=== PATIENT | female | born 1935 | race Caucasian/White ===

== ENCOUNTER 2016-09-01 15:16 | Outpatient (CLI) | payer MEDICARE, OTHER | END 2016-09-01 23:59 | disposition critical access hospital (66) | LOC: EMS 15:16 | PROVIDERS: ATTEND Surgery | DX: R50.9 Fever, unspecified (principal) | CPT/HCPCS: A0425; A0429 ==

== ENCOUNTER 2016-09-01 15:39 | Inpatient (IN) | payer MEDICARE, OTHER ==
[2016-09-01] MEDS ORDERED: methylPREDNISolone SUCCINATE 125 MG/2 ML VIAL IVP STA (15:52)
[2016-09-01] MEDS ORDERED: ALBUTEROL NEB 2.5 MG/3 ML INH STA (15:52)
--- NOTE | 2016-09-01 15:56 | ED Physician Documentation ---
History of Present Illness - Stated complaint Stated Complaint: FLU SYMPTOMS - Chief complaint Chief Complaint: Resp - Additonal information Additional information: hx from pt 81 female with COPD ill with subj fever chills cough soa for several days cannot use her MDI 2/2 dyspnea no pain no leg edema went to clinic and was hypoxic sent to ER for admit Review of Systems Constitutional: reports: Fever, Chills Cardiac: denies: Chest pain / pressure Respiratory: reports: Dyspnea, Cough GI: denies: Abdominal Pain, Nausea, Vomiting Musculoskeletal: denies: Extremity swelling Endocrine: denies: Easy bruising / bleeding Immunocompromised: denies: Immunocompromised PD PAST MEDICAL HISTORY - Past Medical History Cardiovascular: Atrial flutter Respiratory: COPD Neuro: None Endocrine/Autoimmune: None GI: GERD : Nocturia, Kidney stones HEENT: Dental implants Psych: Depression Musculoskeletal: None Derm: None - Past Surgical History Past Surgical History: Yes /[employer]BER: Hysterectomy Derm: Skin grafts, Skin cancer surgery - Present Medications Home Medications: Ambulatory Orders Medication Instructions Recorded Confirmed Albuterol Sulfate 0.63 mg IH DAILY 05/28/13 09/01/16 Amlodipine Bes/Olmesartan Med 1 each PO DAILY 05/28/13 09/01/16 [Dominga 10-40 mg Tablet] Budesonide/Formoterol Fumarate 10.2 gm IH DAILY 05/28/13 09/01/16 [Symbicort 160-4.5 Mcg Inhaler] Omeprazole [Prilosec] 20 mg PO DAILY 05/28/13 09/01/16 Estrogens, Conjugated [Premarin] 0.5 applic VG DAILY 09/01/16 09/01/16 Fluticasone [Flonase] 1 inhaler PO DAILY 09/01/16 09/01/16 - Allergies Allergies/Adverse Reactions: Allergies Allergy/AdvReac Type Severity Reaction Status Date / Time amoxicillin [Amoxicillin] AdvReac Unknown Rash Verified 09/01/16 15:49 ciprofloxacin [From Cipro] AdvReac Unknown Nausea Verified 09/01/16 15:49 ciprofloxacin HCl * AdvReac Unknown Nausea Verified 09/01/16 15:49 [From Cipro] codeine AdvReac Unknown Hallucinati Verified 09/01/16 15:49 ons nabumetone [From Relafen] AdvReac Unknown Nausea Verified 09/01/16 15:49 nitrofurantoin AdvReac Unknown Nausea Verified 09/01/16 15:49 [From Macrobid] nitrofurantoin AdvReac Unknown Nausea Verified 09/01/16 15:49 macrocrystalline * [From Macrobid] Sulfa (Sulfonamide AdvReac Unknown Rash Verified 09/01/16 15:49 Antibiotics) oysters AdvReac Unknown Nausea Uncoded 09/01/16 15:49 - Social History Does the pt smoke?: No Smoking Status: Former smoker Does the pt drink ETOH?: No Does the pt have substance abuse?: No - Immunizations Immunizations are current?: Yes - POLST Patient has POLST: No PD ED PE NORMAL - Vitals Vital signs reviewed: Yes - General General: Alert and oriented X 3 - HEENT HEENT: PERRL - Neck Neck: Supple, no meningeal sign - Cardiac Cardiac: RRR - Respiratory Respiratory: No: No respiratory distress (SOLOMON, exp wheeze jc with cough, dec air movement) - Abdomen Abdomen: Soft, Non tender - Extremities Extremities: No edema, No calf tenderness / cord - Neuro Neuro: Alert and oriented X 3 Results - Vitals Vitals: Vital Signs - 24 hr 09/01/16 09/01/16 09/01/16 15:30 17:38 17:51 Temperature 37.6 C H 37.4 C Heart Rate 95 114 H Respiratory 26 H 18 Rate Blood Pressure 124/61 O2 Saturation 74 L 97 09/01/16 17:58 Temperature Heart Rate 100 Respiratory 18 Rate Blood Pressure 122/58 L O2 Saturation 99 Oxygen O2 Source Nasal cannula Oxygen Flow Rate 2 - Labs Labs: Laboratory Tests 09/01/16 09/01/16 09/01/16 16:14 16:14 16:22 WBC 12.6 H RBC 4.48 Hgb 12.1 Hct 36.7 L MCV 81.8 MCH 26.9 L MCHC 32.9 RDW 17.4 H Plt Count 287 MPV 7.2 L Neut # 10.6 H Lymph # 0.7 L [place] # 1.2 H Eos # 0.0 Baso # 0.0 Absolute Nucleated RBC 0.01 Nucleated RBCs 0.1 Sodium 133 L Potassium 4.0 Chloride 100 L Carbon Dioxide 25 Anion Gap 8.0 BUN 22 H Creatinine 0.8 Estimated GFR (MDRD) 69 L Glucose 119 H Lactic Acid 0.7 Calcium 10.4 H - Rads (name of study) CXR Radiology: See rad report (areas of inc opacity LLL and RML could be infiltrates - per my read lingular infiltrate with loss of L heart border new from prior CXR) PD MEDICAL DECISION MAKING - ED course ED course: better after nebs and steroids, now mid 90s on 2 L and improved breath sounds and resp effort CXR shows lingular infiltrate gave rocephin and zmax will admit Departure - Departure Disposition: 66 [facility] DC/Xfer Clinical Impression: Hypoxia Pneumonia Qualifiers: Pneumonia type: due to unspecified organism Laterality: left Lung location: unspecified part of lung Qualified Code(s): J18.9 - Pneumonia, unspecified organism COPD (chronic obstructive pulmonary disease) Qualifiers: COPD type: unspecified COPD Qualified Code(s): J44.9 - Chronic obstructive pulmonary disease, unspecified Condition: Fair
[2016-09-01] MEDS ORDERED: methylPREDNISolone SUCCINATE 125 MG/2 ML VIAL IVP ONE (16:15)
[2016-09-01] MEDS ORDERED: ALBUTEROL NEB 2.5 MG/3 ML INH ONE (16:21)
[2016-09-01 16:34] LABS: BASOPHILS % (AUTO) 0.2 %; HCT - HEMATOCRIT 36.7 % (37.0-47.0); HGB - HEMOGLOBIN 12.1 g/dL (12.0-16.0); LYMPHOCYTES # (AUTO) 0.7 10^3/uL (1.5-3.5); LYMPHOCYTES % (AUTO) 5.5 %; MEAN CORPUSCULAR HEMOGLOBIN 26.9 pg (27.0-31.0); MEAN CORPUSCULAR HGB CONC 32.9 g/dL (32.0-36.0); MEAN CORPUSCULAR VOLUME 81.8 fL (81.0-99.0); MEAN PLATELET VOLUME 7.2 fL (7.9-10.8); MONOCYTES # (AUTO) 1.2 10^3/uL (0.0-1.0); MONOCYTES % (AUTO) 9.7 %; NEUTROPHILS # (AUTO) 10.6 10^3/uL (1.5-6.6); NEUTROPHILS % (AUTO) 84.6 %; NUCLEATED RED BLOOD CELLS AUTO 0.1 /100WBC; RED BLOOD COUNT 4.48 10^6/uL (4.20-5.40); RED CELL DISTRIBUTION WIDTH 17.4 % (12.0-15.0); UNCORRECTED WHITE BLOOD COUNT 12.6 x10^3/uL; WHITE BLOOD COUNT 12.6 x10^3/uL (4.8-10.8)
[2016-09-01 16:42] LABS: CALCIUM 10.4 mg/dL (8.5-10.3); CREATININE 0.8 mg/dL (0.4-1.0)
[2016-09-01] MEDS ORDERED: AZITHROMYCIN INJ 500 MG in SODIUM CHLORIDE 0.9% 250 ML IV STA (17:36)
[2016-09-01] MEDS ORDERED: cefTRIAXone 1 GM in SODIUM CHLORIDE 0.9% MINIBAG 100 ML IV STA (17:36)
[2016-09-01] MEDS ORDERED: cefTRIAXone 1 GM VIAL ONE (17:38)
[2016-09-01] MEDS ORDERED: oxyCODONE 5 MG TABLET PO PRN ×2 (17:41)
[2016-09-01] MEDS ORDERED: SODIUM CHLORIDE FLUSH 0.9% 10 ML SYRINGE IVP PRN (17:41)
[2016-09-01] MEDS ORDERED: PROCHLORPERAZINE 10 MG/2 ML VIAL IVP PRN (17:41)
[2016-09-01] MEDS ORDERED: ACETAMINOPHEN 325 MG TABLET PO PRN (17:41)
[2016-09-01] MEDS ORDERED: ONDANSETRON 4 MG/2 ML VIAL IVP PRN (17:41)
--- NOTE | 2016-09-01 17:58 | XRAY Preliminary Report ---
Exam: XR Chest 2 View PA/LAT IMPRESSION: 1. Hyperinflated lungs with extensive interstitial disease of the lung. Overall, chronic appearing in terstitial process has progressed since the prior imaging. 2. No new definite focal consolidation, effusions or pneumothorax. Areas of increased parenchymal opa cities in the left lower and lateral right midlung could represent infection or inflammatory changes superimposed upon chronic lung abnormalities. [facility] SITE ID: [id number]
--- NOTE | 2016-09-01 18:35 | XRAY Report ---
EXAM: CHEST RADIOGRAPHY EXAM DATE: 09/01/2016 05:20 PM. CLINICAL HISTORY: Cough, hypoxia. COMPARISON: 12/16/2013 CT of the chest and 10/14/2008 chest radiograph. TECHNIQUE: 2 views. FINDINGS: Lungs/Pleura: Lungs are hyperinflated. Extensive coarse interstitial parenchymal abnormalities are pr esent throughout both lungs. Overall, the degree of interstitial lung disease has progressed since th e prior chest radiograph and CT of the chest. No new consolidation, effusions or pneumothorax. Bronch ial wall thickening is noted. Mediastinum: Atheromatous plaques are noted in the thoracic arch. No cardiac enlargement. Other: None. IMPRESSION: 1. Hyperinflated lungs with extensive interstitial disease of the lung. Overall, chronic appearing in terstitial process has progressed since the prior imaging. 2. No new definite focal consolidation, effusions or pneumothorax. Areas of increased parenchymal den sities in the left lower and lateral right midlung could represent infection or inflammatory changes superimposed upon chronic lung abnormalities. [facility] Referring Provider Line: [phone] SITE ID: [id number]
[2016-09-01] MEDS ORDERED: methylPREDNISolone SUCCINATE 40 MG/ML VIAL IVP SCH (22:00)
[2016-09-02] MEDS: SODIUM CHLORIDE 0.9% 1,000 ML IV SCH ×3 (01:08→09:11)
[2016-09-02] MEDS: SODIUM CHLORIDE FLUSH 0.9% 10 ML SYRINGE IVP SCH ×4 (01:09→22:09)
[2016-09-02] MEDS: FORMOTEROL FUMARATE NEB 20 MCG/2 ML INH SCH ×3 (02:09→21:13)
[2016-09-02] MEDS: IPRATROPIUM/ALBUTEROL 3 ML NEB INH SCH ×4 (02:09→16:45)
[2016-09-02] MEDS: BUDESONIDE 0.5 MG/2 ML NEB INH SCH ×3 (02:09→21:13)
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
[2016-09-02 06:15] LABS: BASOPHILS % (AUTO) 0.1 %; HCT - HEMATOCRIT 35.8 % (37.0-47.0); HGB - HEMOGLOBIN 11.8 g/dL (12.0-16.0); LYMPHOCYTES # (AUTO) 0.4 10^3/uL (1.5-3.5); LYMPHOCYTES % (AUTO) 4.1 %; MEAN CORPUSCULAR HEMOGLOBIN 27.5 pg (27.0-31.0); MEAN CORPUSCULAR HGB CONC 32.9 g/dL (32.0-36.0); MEAN CORPUSCULAR VOLUME 83.6 fL (81.0-99.0); MEAN PLATELET VOLUME 7.3 fL (7.9-10.8); MONOCYTES # (AUTO) 0.3 10^3/uL (0.0-1.0); MONOCYTES % (AUTO) 2.8 %; NEUTROPHILS # (AUTO) 9.7 10^3/uL (1.5-6.6); RED BLOOD COUNT 4.28 10^6/uL (4.20-5.40); RED CELL DISTRIBUTION WIDTH 17.4 % (12.0-15.0); UNCORRECTED WHITE BLOOD COUNT 10.4 x10^3/uL; WHITE BLOOD COUNT 10.4 x10^3/uL (4.8-10.8)
[2016-09-02 06:22] LABS: CALCIUM 10.1 mg/dL (8.5-10.3); CREATININE 0.7 mg/dL (0.4-1.0); POTASSIUM 4.3 mmol/L (3.5-5.0)
[2016-09-02] MEDS: PANTOPRAZOLE 40 MG TABLET PO SCH (06:22)
[2016-09-02] MEDS ORDERED: amLODIPine 5 MG TABLET PO SCH (09:00)
[2016-09-02] MEDS ORDERED: LOSARTAN 50 MG TABLET PO SCH (09:00)
[2016-09-02] MEDS ORDERED: ENOXAPARIN 40 MG/0.4 ML SYRINGE SUBQ SCH ×2 (09:00)
[2016-09-02] MEDS: cefTRIAXone 2 GM in SODIUM CHLORIDE 0.9% MINIBAG 100 ML IV SCH (09:10)
[2016-09-02] MEDS: POLYETHYLENE GLYCOL 3350 17 GM PACKET PO SCH ×2 (09:11→09:18)
[2016-09-02] MEDS: FLUTICASONE NASAL SPRAY NAS SCH (09:11)
[2016-09-02] MEDS: ENOXAPARIN 30 MG/0.3 ML SYRINGE SUBQ SCH (09:11)
[2016-09-02] MEDS: SACCHAROMYCES BOULARDII 250 MG CAPSULE PO SCH ×2 (09:11→16:59)
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
[2016-09-02] MEDS: predniSONE 10 MG TABLET PO SCH (10:33)
[2016-09-02] MEDS: IPRATROPIUM/ALBUTEROL 3 ML NEB INH PRN (21:13)
[2016-09-03] MEDS: SODIUM CHLORIDE FLUSH 0.9% 10 ML SYRINGE IVP SCH ×2 (05:46→08:54)
[2016-09-03 05:54] LABS: BASOPHILS % (AUTO) 0.1 %; HCT - HEMATOCRIT 35.1 % (37.0-47.0); HGB - HEMOGLOBIN 11.4 g/dL (12.0-16.0); LYMPHOCYTES # (AUTO) 0.8 10^3/uL (1.5-3.5); LYMPHOCYTES % (AUTO) 7.3 %; MEAN CORPUSCULAR HEMOGLOBIN 27.1 pg (27.0-31.0); MEAN CORPUSCULAR HGB CONC 32.6 g/dL (32.0-36.0); MEAN CORPUSCULAR VOLUME 83.3 fL (81.0-99.0); MEAN PLATELET VOLUME 7.2 fL (7.9-10.8); MONOCYTES # (AUTO) 0.7 10^3/uL (0.0-1.0); MONOCYTES % (AUTO) 6.6 %; NEUTROPHILS # (AUTO) 9.3 10^3/uL (1.5-6.6); RED BLOOD COUNT 4.22 10^6/uL (4.20-5.40); RED CELL DISTRIBUTION WIDTH 17.4 % (12.0-15.0); UNCORRECTED WHITE BLOOD COUNT 10.8 x10^3/uL; WHITE BLOOD COUNT 10.8 x10^3/uL (4.8-10.8)
[2016-09-03 06:07] LABS: CALCIUM 10.9 mg/dL (8.5-10.3); CREATININE 0.7 mg/dL (0.4-1.0); POTASSIUM 4.3 mmol/L (3.5-5.0)
[2016-09-03] MEDS: PANTOPRAZOLE 40 MG TABLET PO SCH (06:41)
--- NOTE | 2016-09-03 07:43 | Discharge Plan ---
Discharge Plan Disposition: Home, Self Care Condition: Stable Prescriptions: Azithromycin 250 mg PO DAILY #3 tablet predniSONE [Deltasone] 30 mg PO DAILYWM #15 tablet Diet: Regular Activity Restrictions: No Restrictions Shower Restrictions: No Driving Restrictions: No Weight Bearing: Full Weight Additional Instructions or Follow Up instructions: COPD exacerbation and possible early pneumonia You came to the hospital w/ profound fatigue, low oxygen and wheezing and chills, cough and shortness of breath at home and could not effectively use your inhaler . No fever here In the ER you needed several nebulizer treatments and started antibiotics and were much improved and back on your home flow of 2L oxygen. The chest Xray shows, chronic COPD change and choronic fibrotic changes of the lungs ("interstitial lung disease, which appears progressed since the prior chest Xray here from 2013. and some Left lower lobe and Righ mid lobe changes that could be acute inflammation Take an additional 3 days of azithromycin 09/04-09/06, and 5 more days of prednisone 30 mg / day 09/04-09/08 Your blood pressure has been relatively low here even when holding your home medication and giving you IVfluid 101-106/50-61 and was 94/58 the first day Do not resume your blood pressure pill (Dominga ; combination of amlodipine/ olmesartan; 2 different Blood pressure agents) until reevaluated by Dr. Francis. You might not need the blood pressure pill any more (you also noted weight loss) continue your home oxygen 2liters continue your inhalers REcommend Dr. Francis recheck CXray ~ 4 weeks No Smoking: If you smoke, Please STOP! Call for help. Follow-up with: NATHANIEL FRANCIS MD [Physician No Access] - 1-2 Days (reevaluate oxygenation consider recheck CXR in 4-6 wks (there was no obvious infiltrate , much ILD, change, increased parenchymal densities LLL and lateral RMid lung ? infection vs inflammatory change superimposed on chronic changes)
[2016-09-03] MEDS: cefTRIAXone 2 GM in SODIUM CHLORIDE 0.9% MINIBAG 100 ML IV SCH (08:47)
[2016-09-03] MEDS: SACCHAROMYCES BOULARDII 250 MG CAPSULE PO SCH (08:52)
[2016-09-03] MEDS: predniSONE 10 MG TABLET PO SCH (08:52)
[2016-09-03] MEDS: POLYETHYLENE GLYCOL 3350 17 GM PACKET PO SCH (08:52)
[2016-09-03] MEDS: ENOXAPARIN 30 MG/0.3 ML SYRINGE SUBQ SCH (08:53)
[2016-09-03] MEDS: FLUTICASONE NASAL SPRAY NAS SCH (08:55)
[2016-09-03] MEDS ORDERED: AZITHROMYCIN 250 MG TABLET PO ONE (09:00)
[2016-09-03] MEDS: FORMOTEROL FUMARATE NEB 20 MCG/2 ML INH SCH (09:31)
[2016-09-03] MEDS: IPRATROPIUM/ALBUTEROL 3 ML NEB INH PRN (09:31)
[2016-09-03] MEDS: BUDESONIDE 0.5 MG/2 ML NEB INH SCH (09:31)
[2016-09-03 09:54] VITALS: BP 96/53
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
== END 2016-09-03 10:59 | disposition home or self-care (01) | DRG 190 ==
LOC: EDUNIT# → ED 15:39 → MS 17:42
PROVIDERS: ADMIT Nurse Practitioner; ATTEND Nurse Practitioner
DX: J44.1 Chronic obstructive pulmonary disease with (acute) exacerbation (principal); J18.9 Pneumonia, unspecified organism; J96.21 Acute and chronic respiratory failure with hypoxia; J44.0 Chronic obstructive pulmonary disease with (acute) lower respiratory infection; K21.9 Gastro-esophageal reflux disease without esophagitis; Z88.0 Allergy status to penicillin; Z88.2 Allergy status to sulfonamides; Z88.5 Allergy status to narcotic agent; Z87.891 Personal history of nicotine dependence; Z90.710 Acquired absence of both cervix and uterus; R53.1 Weakness; E86.0 Dehydration; Z99.81 Dependence on supplemental oxygen; N95.2 Postmenopausal atrophic vaginitis
CPT/HCPCS: 36415; 71020; 80048; 83605; 85025; 87040; 94640; 96374; 96375; 99284

== ENCOUNTER 2016-12-24 23:08 | Outpatient (CLI) | payer MEDICARE, OTHER | END 2016-12-24 23:09 | disposition EMS.NT | LOC: EMS 23:08 | PROVIDERS: ATTEND Surgery | DX: Z03.89 Encounter for observation for other suspected diseases and conditions ruled out (principal); W18.39XA Other fall on same level, initial encounter; Y92.009 Unspecified place in unspecified non-institutional (private) residence as the place of occurrence of the external cause ==

== ENCOUNTER 2017-01-03 05:03 | Outpatient (CLI) | payer MEDICARE, OTHER | END 2017-01-03 05:04 | disposition critical access hospital (66) | LOC: EMS 05:03 | PROVIDERS: ATTEND Surgery | DX: M25.561 Pain in right knee (principal); M25.521 Pain in right elbow; M25.551 Pain in right hip; S09.90XA Unspecified injury of head, initial encounter; W19.XXXA Unspecified fall, initial encounter; Y92.002 Bathroom of unspecified non-institutional (private) residence as the place of occurrence of the external cause | CPT/HCPCS: A0425; A0429 ==

== ENCOUNTER 2017-01-03 05:32 | Emergency (ER) | payer MEDICARE, OTHER ==
--- NOTE | 2017-01-03 05:58 | ED Physician Documentation ---
PD HPI Fall - Stated complaint Stated Complaint: GLF/R SIDED PN - Chief complaint Chief Complaint: Trauma Ext - History obtained from History obtained from: Patient, EMS - History of Present Illness Mechanism of injury: Tripped Fall distance: Standing position Where injury occurred: Home Timing - onset: How many hours ago (45) Injury(ies) location: Head, Right Upper Extremity, Right Lower Extremity Quality of pain: Pain, Aching Associated symptoms: LOC Worsens with: Movement Similar symptoms before: No diagnosis Recently seen: Not recently seen - Additional information Additional information: Patient is an 82 year old female with a history of severe copd on home O2 who was brought in by ems after falling. Patient got up to go to the bathroom when she believes she tripped. Patient fell and had questionable loc. Patient was able to call the life line. ems came and patient was awake and able to ambulate at the scene. Patient was hypoxic until placed on her home 02. Patient lives alone as her recently . Review of Systems Constitutional: denies: Fever, Chills Eyes: denies: Decreased vision, Photophobia Ears: denies: Ear pain, Drainage/discharge Nose: denies: Epistaxis Throat: denies: Dental pain / toothache Cardiac: denies: Chest pain / pressure, Calf pain Respiratory: reports: Wheezing GI: denies: Nausea, Vomiting Skin: reports: Abrasion (s) Musculoskeletal: reports: Extremity pain, Joint pain, Extremity swelling, Joint swelling, Pain with weight bearing. denies: Neck pain Neurologic: reports: Head injury, LOC. 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: Hysterectomy Derm: Skin grafts, Skin cancer surgery - Present Medications Home Medications: Ambulatory Orders Medication Instructions Recorded Confirmed Budesonide/Formoterol Fumarate 2 puffs INH BID 05/28/13 09/05/16 [Symbicort 160-4.5 Mcg Inhaler] Omeprazole [Prilosec] 20 mg PO QDAC 05/28/13 09/05/16 Estrogens, Conjugated [Premarin] 0.5 applic VG MOWEFR 09/01/16 09/05/16 Fluticasone [Flonase] 1 inhaler PO DAILY 09/01/16 09/05/16 Albuterol Sulfate [Proair Hfa 2 puffs INH Q4H PRN 09/02/16 09/05/16 Inhaler] Acetaminophen [Tylenol] 650 mg PO Q4HR PRN #0 tablet 09/03/16 09/05/16 Azithromycin 250 mg PO DAILY #3 tablet 09/03/16 09/05/16 predniSONE [Deltasone] 30 mg PO DAILYWM #15 tablet 09/03/16 09/05/16 - Allergies Allergies/Adverse Reactions: Allergies Allergy/AdvReac Type Severity Reaction Status Date / Time amoxicillin [Amoxicillin] AdvReac Unknown Rash Verified 09/01/16 15:49 ciprofloxacin [From Cipro] AdvReac Unknown Nausea Verified 09/01/16 15:49 ciprofloxacin HCl * AdvReac Unknown Nausea Verified 09/01/16 15:49 [From Cipro] codeine AdvReac Unknown Hallucinati Verified 09/01/16 15:49 ons nabumetone [From Relafen] AdvReac Unknown Nausea Verified 09/01/16 15:49 nitrofurantoin AdvReac Unknown Nausea Verified 09/01/16 15:49 [From Macrobid] nitrofurantoin AdvReac Unknown Nausea Verified 09/01/16 15:49 macrocrystalline * [From Macrobid] Sulfa (Sulfonamide AdvReac Unknown Rash Verified 09/01/16 15:49 Antibiotics) oysters AdvReac Unknown Nausea Uncoded 09/01/16 15:49 - Social History Does the pt smoke?: No Smoking Status: Never smoker Does the pt drink ETOH?: No Does the pt have substance abuse?: No - Immunizations Immunizations are current?: Yes - POLST Patient has POLST: No PD ED PE NORMAL - Vitals Vital signs reviewed: Yes - General General: Alert and oriented X 3, No acute distress - HEENT HEENT: PERRL, Moist mucous membranes - Neck Neck: No bony TTP - Cardiac Cardiac: RRR, No murmur - Abdomen Abdomen: Soft, Non distended - Neuro Neuro: Alert and oriented X 3, No motor deficit, No sensory deficit, Normal speech - Psych Psych: Normal mood PD ED PE EXPANDED - HEENT HEENT: Head injury (hematoma of right side of the scalp), PERRL, Ears normal. No: Right nares epsitaxis, Left nares epistaxis - Derm Derm: Abrasion (s), Bruising - Extremities Extremities: Right elbow (ecchymosis of right elbow), Right hip (tenderness of right hip), Right knee (tenderness, swelling and ecchymosis of right knee), Pedal Pulses Present, Motor intact, Sensory intact, Vascular intact, Tendon intact Results - Vitals Vitals: Vital Signs - 24 hr 01/03/17 01/03/17 05:31 06:48 Temperature 36.5 C Heart Rate 59 L 60 Respiratory 20 16 Rate Blood Pressure 198/75 H 187/70 H O2 Saturation 100 99 Oxygen O2 Source Room air Oxygen Flow Rate 2 - Labs Labs: Laboratory Tests 01/03/17 06:35 Urine Color YELLOW Urine Clarity CLEAR Urine pH 7.0 Ur Specific [place] 1.010 Urine Protein NEGATIVE Urine Glucose (UA) NEGATIVE Urine Ketones NEGATIVE Urine Occult Blood NEGATIVE Urine Nitrite NEGATIVE Urine Bilirubin NEGATIVE Urine Urobilinogen 0.2 (NORMAL) Ur Leukocyte Esterase NEGATIVE Ur Microscopic Review NOT INDICATED Urine Culture Comments NOT INDICATED - Rads (name of study) elbow Radiology: Final report received (osteopenia, no acute fracture or dislocation) hip Radiology: Final report received (no acute fracture or dislocation) knee x-ray Radiology: Final report received (osteopenia, no acute fracture or dislocation) ct head Radiology: Final report received (no acute intracranial pathology, scalp hematoma) PD MEDICAL DECISION MAKING - ED course Complexity details: reviewed old records, reviewed results, re-evaluated patient , considered differential, d/w patient, d/w family ED course: Patient was seen and examined at bedside. Patient was placed on her supplemental 02. Patient was sent for imaging. when patient returned urine was collected and sent. Patient's imaging was reviewed. there is no acute fracture or dislocations and no acute intracranial pathology. Patient required no further work up at this time and was stable for discharge home with her son. Departure - Departure Disposition: 01 Home, Self Care Clinical Impression: Hematoma of scalp, Injury of lower leg Condition: Good Instructions: ED Hematoma Follow-Up: Wellington Francis MD [Primary Care Provider] - Within 3 Days Comments: Your diagnostics today were within normal limits. there were no acute fractures or intracranial bleeding. there was no urinary tract infection. You will likely be in more pain over the next few days. You can take tylenol and an occasional ibuprofen as needed for pain. You should follow up with your doctor if your symptoms persist. You may return to the emergency department at any time for new, worsening or uncontrollable symptoms.
[2017-01-03 06:45] LABS: BILIRUBIN,URINE NEGATIVE (NEGATIVE)
[2017-01-03 06:49] LABS: UA CHARGE (STRIP ONLY) YES; UR CULTURE IF IND NOT INDICATED
--- NOTE | 2017-01-03 06:52 | XRAY Preliminary Report ---
Exam: XR HIP W/PELVIS 2-3V RT IMPRESSION: 1. Osteopenia. No acute fracture or dislocation seen. [facility] SITE ID: [id number]
--- NOTE | 2017-01-03 06:53 | XRAY Preliminary Report ---
Exam: XR ELBOW 3 VIEW RT IMPRESSION: 1. Osteopenia. No acute fracture or dislocation seen. [facility] SITE ID: [id number]
--- NOTE | 2017-01-03 06:54 | XRAY Report ---
EXAM: RIGHT HIP AND PELVIS RADIOGRAPHY EXAM DATE: 01/03/2017 06:36 AM. HISTORY: Fall, ecchymosis to head, elbow hip and knee. COMPARISONS: None. TECHNIQUE: 1 view of the pelvis and 1 view of the hip. FINDINGS: Bones: Osteopenia. No acute fracture seen. Joints: No dislocation. Joint spaces are relatively well preserved for age. Soft Tissues: Vascular calcifications. IMPRESSION: 1. Osteopenia. No acute fracture or dislocation seen. [facility] Referring Provider Line: [phone] SITE ID: [id number]
--- NOTE | 2017-01-03 06:56 | XRAY Report ---
EXAM: RIGHT ELBOW RADIOGRAPHY EXAM DATE: 01/03/2017 06:35 AM. CLINICAL HISTORY: Fall, ecchymosis to head, elbow hip and knee. COMPARISON: None. TECHNIQUE: 3 views. FINDINGS: Bones: Osteopenia. No acute fracture seen. Joints: No dislocation. Joint spaces are relatively well preserved for age. No definite joint effusio n. Soft Tissues: Mild soft tissue swelling. IMPRESSION: 1. Osteopenia. No acute fracture or dislocation seen. [facility] Referring Provider Line: [phone] SITE ID: [id number]
--- NOTE | 2017-01-03 06:56 | XRAY Preliminary Report ---
Exam: XR KNEE 3 VIEW RT IMPRESSION: 1. Osteopenia. No acute fracture or dislocation seen. [facility] SITE ID: [id number]
--- NOTE | 2017-01-03 06:59 | XRAY Report ---
EXAM: RIGHT KNEE RADIOGRAPHY EXAM DATE: 01/03/2017 06:36 AM. CLINICAL HISTORY: Fall, ecchymosis to head, elbow hip and knee. COMPARISON: None. TECHNIQUE: 3 views. FINDINGS: Bones: Osteopenia. No acute fracture seen. Joints: No dislocation. Joint spaces are relatively well preserved for age. No definite joint effusio n. Soft Tissues: Mild soft tissue swelling. IMPRESSION: 1. Osteopenia. No acute fracture or dislocation seen. [facility] Referring Provider Line: [phone] SITE ID: [id number]
--- NOTE | 2017-01-03 07:04 | CT Preliminary Report ---
Exam: CT HEAD W/O IMPRESSION: 1. No acute intracranial process. 2. Small right frontal scalp hematoma without calvarial fracture. [facility] SITE ID: [id number]
[2017-01-03] MEDS ORDERED: ACETAMINOPHEN 325 MG TABLET PO STA (07:07)
--- NOTE | 2017-01-03 07:07 | CT Report ---
EXAM: CT HEAD EXAM DATE: 01/03/2017 06:36 AM. CLINICAL HISTORY: Head pain, fall. COMPARISON: None. TECHNIQUE: Multiaxial CT images were obtained from the foramen magnum to the vertex. IV contrast: Non e. Reformats: Coronal. In accordance with CT protocol optimization, one or more of the following dose reduction techniques w ere utilized for this exam: automated exposure control, adjustment of mA and/or KV based on patient s ize, or use of iterative reconstructive technique. FINDINGS: Parenchyma: No intraparenchymal hemorrhage. No evidence of mass, midline shift, or CT findings of acu te infarction. 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 Sood-white differentiation is distinct elsewhere in the brain. Extraaxial Spaces: No acute subdural or epidural collections identified. Ventricles: The ventricles and cortical sulci are moderately enlarged, consistent with age-related ti ssue loss. Sinuses and orbits: Imaged paranasal sinuses, orbits, and mastoids show no significant abnormality. Bones: A small right frontal scalp hematoma is present without an underlying calvarial fracture. Other: Moderate diffuse chronic microangiopathic white matter changes are evident. Mild intracranial atherosclerosis is noted. IMPRESSION: 1. No acute intracranial process. 2. Small right frontal scalp hematoma without calvarial fracture. [facility] Referring Provider Line: [phone] SITE ID: [id number]
[2017-01-03] MEDS ORDERED: ACETAMINOPHEN 325 MG TABLET PO ONE (07:20)
[2017-01-03 07:29] VITALS: BP 178/81
== END 2017-01-03 07:25 | disposition home or self-care (01) ==
LOC: EDUNIT# → ED 05:32
DX: S00.03XA Contusion of scalp, initial encounter (principal); S89.91XA Unspecified injury of right lower leg, initial encounter; S80.01XA Contusion of right knee, initial encounter; S50.01XA Contusion of right elbow, initial encounter; W01.0XXA Fall on same level from slipping, tripping and stumbling without subsequent striking against object, initial encounter; J44.9 Chronic obstructive pulmonary disease, unspecified; Z99.81 Dependence on supplemental oxygen
CPT/HCPCS: 70450; 73080; 73502; 73562; 81003; 99284; A9270; 81001; 87086

== ENCOUNTER 2017-04-18 09:02 | Outpatient (CLI) | payer MEDICARE, OTHER ==
[2017-04-18 13:01] LABS: BASOPHILS # (AUTO) 0.1 10^3/uL (0.0-0.1); BASOPHILS % (AUTO) 1.3 %; EOSINOPHILS # (AUTO) 0.2 10^3/uL (0.0-0.7); EOSINOPHILS % (AUTO) 2.5 %; HGB - HEMOGLOBIN 12.7 g/dL (12.0-16.0); LYMPHOCYTES % (AUTO) 26.2 %; MEAN CORPUSCULAR HEMOGLOBIN 27.8 pg (27.0-31.0); MEAN CORPUSCULAR HGB CONC 34.1 g/dL (32.0-36.0); MEAN CORPUSCULAR VOLUME 81.6 fL (81.0-99.0); MEAN PLATELET VOLUME 7.8 fL (7.9-10.8); MONOCYTES # (AUTO) 0.5 10^3/uL (0.0-1.0); MONOCYTES % (AUTO) 6.5 %; NEUTROPHILS # (AUTO) 4.9 10^3/uL (1.5-6.6); NEUTROPHILS % (AUTO) 63.5 %; PLT - PLATELET COUNT 258 10^3/uL (130-450); RED BLOOD COUNT 4.55 10^6/uL (4.20-5.40); WHITE BLOOD COUNT 7.8 x10^3/uL (4.8-10.8)
[2017-04-18 13:28] LABS: ALBUMIN 3.6 g/dL (3.2-5.5); ALKALINE PHOSPHATASE 58 IU/L (42-121); ALT ALANINE AMINOTRANSFERASE 15 IU/L (10-60); AST ASPARTATE AMINOTRANSFERASE 26 IU/L (10-42); BILIRUBIN,TOTAL 0.4 mg/dL (0.2-1.0); BUN - BLOOD UREA NITROGEN 15 mg/dL (6-20); CARBON DIOXIDE - CO2 30 mmol/L (21-32); CHLORIDE 100 mmol/L (101-111); CHOL/HDL RATIO 3.7 (<4.4); CHOLESTEROL 191 mg/dL; CREATININE 0.6 mg/dL (0.4-1.0); GFR - MDRD 95 (>89); GLUCOSE 106 mg/dL (70-100); HDL CHOLESTEROL 52 mg/dL; LDL CHOLESTEROL,CALCULATED 122 mg/dL; LDL/HDL RATIO 2.3 (<4.4); SODIUM 138 mmol/L (135-145); TOTAL PROTEIN 7.1 g/dL (6.7-8.2); VLDL CHOLESTEROL 17 mg/dL
== END 2017-04-18 09:03 | disposition home or self-care (01) ==
LOC: LAB.WCP 09:02
PROVIDERS: ATTEND Family Medicine
DX: I10 Essential (primary) hypertension (principal); I25.10 Atherosclerotic heart disease of native coronary artery without angina pectoris; E03.9 Hypothyroidism, unspecified
CPT/HCPCS: 36415; 80053; 80061; 83721; 84443; 85025

== ENCOUNTER 2017-05-17 08:50 | Outpatient (CLI) | payer MEDICARE, OTHER ==
[2017-05-17 13:49] LABS: ALBUMIN 3.9 g/dL (3.2-5.5); ALBUMIN/GLOBULIN RATIO 1.2 (1.0-2.2); BILIRUBIN,TOTAL 0.2 mg/dL (0.2-1.0); CALCIUM 11.5 mg/dL (8.5-10.3); CREATININE 0.6 mg/dL (0.4-1.0); TOTAL PROTEIN 7.2 g/dL (6.7-8.2)
== END 2017-05-17 08:51 | disposition home or self-care (01) ==
LOC: LAB.WCP 08:50
PROVIDERS: ATTEND Family Medicine
DX: E83.52 Hypercalcemia (principal)
CPT/HCPCS: 36415; 80053

== ENCOUNTER 2017-07-11 08:00 | Outpatient (CLI) | payer MEDICARE, OTHER | END 2017-07-11 08:01 | LOC: LAB.R 08:00 | PROVIDERS: ATTEND Family Medicine | DX: R31.9 Hematuria, unspecified (principal) | CPT/HCPCS: 87077; 87086 ==

== ENCOUNTER 2017-07-12 07:58 | Outpatient (CLI) | payer MEDICARE, OTHER ==
--- NOTE | 2017-07-12 14:23 | CT Report ---
CT ABDOMEN AND PELVIS WITHOUT CONTRAST: 07/12/2017 CLINICAL INDICATION: History of kidney stones, hematuria. TECHNIQUE: Axial CT images of the abdomen and pelvis were obtained without oral or intravenous contrast. COMPARISON: 12/14/2008 FINDINGS: Limited evaluation of the lung bases demonstrates extensive emphysema. ABDOMEN: There is no evidence of nephrolithiasis or hydronephrosis. The kidneys appear unremarkable. The ureters are not dilated. Allowing for the lack of intravenous contrast enhancement, the liver, spleen, pancreas and adrenal glands are unremarkable. The gallbladder is not dilated. No bowel dilatation, free gas, or free fluid is present. No abdominal adenopathy is seen. PELVIS: The distal ureters and urinary bladder appear unremarkable. Postoperative changes of hysterectomy are present. Colonic diverticulosis is seen, without CT evidence of diverticulitis. No pelvic adenopathy or free fluid is present. Osseous structures demonstrate degenerative changes. IMPRESSION: NO EVIDENT ETIOLOGY FOR PATIENT'S HEMATURIA. NO NEPHROLITHIASIS. DIVERTICULOSIS WITHOUT CT EVIDENCE OF DIVERTICULITIS. CT DOSE REDUCTION STATEMENT In accordance with CT protocol optimization, one or more of the following dose reduction techniques were utilized for this exam: automated exposure control, adjustment of mA and/or KV based on patient size, or use of iterative reconstructive technique. TD: 07/12/2017 14:22 SARAH
== END 2017-07-12 07:59 | disposition home or self-care (01) ==
LOC: DI 07:58
PROVIDERS: ATTEND Family Medicine
DX: R31.9 Hematuria, unspecified (principal); K57.30 Diverticulosis of large intestine without perforation or abscess without bleeding
CPT/HCPCS: 74176

== ENCOUNTER 2017-07-20 11:24 | Outpatient (CLI) | payer MEDICARE, OTHER ==
[2017-07-20 19:32] LABS: BASOPHILS # (AUTO) 0.1 10^3/uL (0.0-0.1); BASOPHILS % (AUTO) 0.9 %; EOSINOPHILS # (AUTO) 0.2 10^3/uL (0.0-0.7); EOSINOPHILS % (AUTO) 2.5 %; HGB - HEMOGLOBIN 11.4 g/dL (12.0-16.0); LYMPHOCYTES # (AUTO) 1.9 10^3/uL (1.5-3.5); LYMPHOCYTES % (AUTO) 29.9 %; MEAN CORPUSCULAR HEMOGLOBIN 27.9 pg (27.0-31.0); MEAN CORPUSCULAR HGB CONC 32.4 g/dL (32.0-36.0); MEAN CORPUSCULAR VOLUME 86.2 fL (81.0-99.0); MEAN PLATELET VOLUME 7.5 fL (7.9-10.8); MONOCYTES # (AUTO) 0.5 10^3/uL (0.0-1.0); MONOCYTES % (AUTO) 7.9 %; NEUTROPHILS # (AUTO) 3.8 10^3/uL (1.5-6.6); NEUTROPHILS % (AUTO) 58.8 %; PLT - PLATELET COUNT 297 10^3/uL (130-450); RED BLOOD COUNT 4.09 10^6/uL (4.20-5.40); RED CELL DISTRIBUTION WIDTH 16.8 % (12.0-15.0); WHITE BLOOD COUNT 6.5 x10^3/uL (4.8-10.8)
[2017-07-20 19:38] LABS: ALBUMIN 3.8 g/dL (3.2-5.5); ALBUMIN/GLOBULIN RATIO 1.2 (1.0-2.2); BILIRUBIN,TOTAL 0.6 mg/dL (0.2-1.0); CALCIUM 10.7 mg/dL (8.5-10.3); CREATININE 0.6 mg/dL (0.4-1.0); TOTAL PROTEIN 6.9 g/dL (6.7-8.2)
[2017-07-20 20:05] LABS: BILIRUBIN,URINE NEGATIVE (NEGATIVE); GLUCOSE, URINE (UA) NEGATIVE (NEGATIVE); KETONES,URINE (UA) NEGATIVE (NEGATIVE); LEUKOCYTE ESTERASE, URINE NEGATIVE (NEGATIVE); NITRITE,URINE NEGATIVE (NEGATIVE); OCCULT BLOOD,URINE TRACE-INTA (NEGATIVE); PROTEIN,URINE NEGATIVE (NEGATIVE); UROBILINOGEN,URINE 0.2 (NORMAL) E.U./dL (NORMAL)
[2017-07-20 20:26] LABS: BACTERIA,URINE Rare /HPF (None Seen); CLARITY,URINE CLEAR (CLEAR); SQUAMOUS EPITHELIAL CELL,UR MANY Squamous (<= Few)
[2017-07-20 20:27] LABS: CRYSTALS,URINE 11-25 Ca Oxalate /LPF
== END 2017-07-20 11:25 | disposition home or self-care (01) ==
LOC: LAB.WCP 11:24
PROVIDERS: ATTEND Family Medicine
DX: R31.9 Hematuria, unspecified (principal); E83.52 Hypercalcemia; E03.9 Hypothyroidism, unspecified; I25.10 Atherosclerotic heart disease of native coronary artery without angina pectoris; I10 Essential (primary) hypertension
CPT/HCPCS: 36415; 80053; 81001; 85025; 87086

== ENCOUNTER 2017-08-03 08:47 | Outpatient (CLI) | payer MEDICARE, OTHER | END 2017-08-03 08:48 | disposition EMS.NT | LOC: EMS 08:47 | PROVIDERS: ATTEND Surgery | DX: R11.2 Nausea with vomiting, unspecified (principal) ==

== ENCOUNTER 2017-11-25 02:17 | Outpatient (CLI) | payer MEDICARE, OTHER | END 2017-11-25 02:18 | disposition critical access hospital (66) | LOC: EMS 02:17 | PROVIDERS: ATTEND Surgery | DX: R11.2 Nausea with vomiting, unspecified (principal); R68.83 Chills (without fever) | CPT/HCPCS: A0425; A0429 ==

== ENCOUNTER 2017-11-25 02:49 | Emergency (ER) | payer MEDICARE, OTHER ==
[2017-11-25] MEDS ORDERED: ONDANSETRON 4 MG/2 ML VIAL IVP STA (02:56)
[2017-11-25] MEDS ORDERED: SODIUM CHLORIDE 0.9% 1,000 ML IV ONE (02:56)
--- NOTE | 2017-11-25 03:10 | ED Physician Documentation ---
History of Present Illness - Stated complaint Stated Complaint: N/V - Chief complaint Chief Complaint: Abd Pain - History obtained from History obtained from: Patient - Additonal information Additional information: 82-year-old female presents the emergency department with multiple episodes of vomiting which started several hours ago. The symptoms are associated with upper abdominal pain. The patient is denying chest pain, shortness of breath, fever, cough, lower abdominal pain or dysuria or diarrhea. No specific triggering factors. No relieving factors. The patient does report feeling very chilled and fatigued. Symptoms are described as moderate. No other associated symptoms. Review of Systems Constitutional: reports: Chills, Fatigue. denies: Fever Eyes: denies: Loss of vision Ears: denies: Ear pain Nose: denies: Rhinorrhea / runny nose Throat: denies: Sore throat Cardiac: denies: Chest pain / pressure Respiratory: denies: Dyspnea GI: reports: Abdominal Pain, Nausea, Vomiting. denies: Diarrhea, Hematemesis, Bloody / black stool : denies: Dysuria Skin: denies: Rash Neurologic: denies: Generalized weakness Psychiatric: denies: Suicidal PD PAST MEDICAL HISTORY - Past Medical History Cardiovascular: Atrial flutter Respiratory: COPD Endocrine/Autoimmune: None GI: GERD : Nocturia, Kidney stones HEENT: Dental implants Psych: Depression Musculoskeletal: None Derm: None - Past Surgical History Past Surgical History: Yes /[employer]: Hysterectomy Derm: Skin grafts, Skin cancer surgery - Present Medications Home Medications: Ambulatory Orders Medication Instructions Recorded Confirmed Budesonide/Formoterol Fumarate 2 puffs INH BID 05/28/13 09/05/16 [Symbicort 160-4.5 Mcg Inhaler] Omeprazole [Prilosec] 20 mg PO QDAC 05/28/13 09/05/16 Fluticasone [Flonase] 1 inhaler PO DAILY 09/01/16 09/05/16 Albuterol Sulfate [Proair Hfa 2 puffs INH Q4H PRN 09/02/16 09/05/16 Inhaler] Acetaminophen [Tylenol] 650 mg PO Q4HR PRN #0 tablet 09/03/16 09/05/16 Aspirin Chewable [St Bill 81 mg PO DAILY 11/25/17 11/25/17 Aspirin] Losartan [Cozaar] 100 mg PO DAILY 11/25/17 11/25/17 Multivitamin/Iron/Folic Acid 1 each PO DAILY 11/25/17 11/25/17 [Centrum Women Tablet] Ondansetron Odt [Zofran] 4 mg TL Q6H PRN #30 tablet 11/25/17 - Allergies Allergies/Adverse Reactions: Allergies Allergy/AdvReac Type Severity Reaction Status Date / Time amoxicillin [From Augmentin] Allergy Nausea Verified 11/25/17 03:01 clavulanic acid Allergy Nausea Verified 11/25/17 03:01 [From Augmentin] ciprofloxacin [From Cipro] AdvReac Unknown Nausea Verified 11/25/17 02:59 ciprofloxacin HCl * AdvReac Unknown Nausea Verified 11/25/17 02:59 [From Cipro] codeine AdvReac Unknown Hallucinati Verified 11/25/17 02:59 ons nabumetone [From Relafen] AdvReac Unknown Nausea Verified 11/25/17 02:59 nitrofurantoin AdvReac Unknown Nausea Verified 11/25/17 02:59 [From Macrobid] nitrofurantoin AdvReac Unknown Nausea Verified 11/25/17 02:59 macrocrystalline * [From Macrobid] Sulfa (Sulfonamide AdvReac Unknown Rash Verified 11/25/17 02:59 Antibiotics) oysters AdvReac Unknown Nausea Uncoded 11/25/17 02:59 - Social History Does the pt smoke?: No Smoking Status: Never smoker Does the pt drink ETOH?: No Does the pt have substance abuse?: No - Immunizations Immunizations are current?: Yes - POLST Patient has POLST: No PD ED PE NORMAL - General General: Alert and oriented X 3. No: No acute distress (The patient appears uncomfortable) - HEENT HEENT: Atraumatic, PERRL, EOMI, Ears normal - Cardiac Cardiac: RRR, Strong equal pulses - Respiratory Respiratory: No respiratory distress, Clear bilaterally - Abdomen Abdomen: Soft, Non distended. No: Non tender (Upper abdominal tenderness, no rebound or peritoneal signs) - Derm Derm: Normal color - Extremities Extremities: No deformity, No edema - Neuro Neuro: Alert and oriented X 3, Normal speech - Psych Psych: Normal affect Results - Vitals Vitals: Vital Signs - 24 hr 11/25/17 11/25/17 02:50 03:17 Temperature 36.9 C Heart Rate 89 77 Respiratory 20 20 Rate Blood Pressure 205/89 H 188/82 H O2 Saturation 100 Oxygen O2 Source Room air - Labs Labs: Laboratory Tests 11/25/17 11/25/17 11/25/17 03:10 03:10 03:10 WBC 12.5 H RBC 4.16 L Hgb 11.7 L Hct 35.8 L MCV 86.0 MCH 28.1 MCHC 32.7 RDW 15.9 H Plt Count 265 MPV 6.8 L Neut # (Auto) 10.5 H Lymph # (Auto) 0.9 L [place] # (Auto) 0.8 Eos # (Auto) 0.2 Baso # (Auto) 0.1 Absolute Nucleated RBC 0.00 Nucleated RBC % 0.0 Sodium 137 Potassium 3.8 Chloride 98 L Carbon Dioxide 32 Anion Gap 7.0 BUN 21 H Creatinine 0.8 Estimated GFR (MDRD) 68 L Glucose 124 H Calcium 10.4 H Total Bilirubin 0.6 AST 29 ALT 23 Alkaline Phosphatase 64 Troponin I < 0.04 Total Protein 6.8 Albumin 3.7 Globulin 3.1 Albumin/Globulin Ratio 1.2 Lipase 36 Urine Color Urine Clarity Urine pH Ur Specific [place] Urine Protein Urine Glucose (UA) Urine Ketones Urine Occult Blood Urine Nitrite Urine Bilirubin Urine Urobilinogen Ur Leukocyte Esterase Ur Microscopic Review Urine Culture Comments 11/25/17 03:40 WBC RBC Hgb Hct MCV MCH MCHC RDW Plt Count MPV Neut # (Auto) Lymph # (Auto) [place] # (Auto) Eos # (Auto) Baso # (Auto) Absolute Nucleated RBC Nucleated RBC % Sodium Potassium Chloride Carbon Dioxide Anion Gap BUN Creatinine Estimated GFR (MDRD) Glucose Calcium Total Bilirubin AST ALT Alkaline Phosphatase Troponin I Total Protein Albumin Globulin Albumin/Globulin Ratio Lipase Urine Color YELLOW Urine Clarity CLEAR Urine pH 8.0 H Ur Specific [place] 1.015 Urine Protein NEGATIVE Urine Glucose (UA) NEGATIVE Urine Ketones TRACE Urine Occult Blood NEGATIVE Urine Nitrite NEGATIVE Urine Bilirubin NEGATIVE Urine Urobilinogen 0.2 (NORMAL) Ur Leukocyte Esterase NEGATIVE Ur Microscopic Review NOT INDICATED Urine Culture Comments NOT INDICATED - Rads (name of study) CT abd/pelvis Radiology: Final report received (1. Extensive colonic diverticulosis. No definite diverticulitis seen.2. Moderate stool in the right hemicolon.3. No bowel obstruction identified. 4. Fatty liver. 5. Appendix appears normal.) CXR Radiology: Final report received (1. Emphysema with mild cardiomegaly and pulmonary vascular congestion. ) PD MEDICAL DECISION MAKING - ED course ED course: The patient's workup does not reveal an acute abnormality that would necessitate admission to the hospital or acute surgical consultation. On reevaluation the patient resting comfortably and her symptoms are under control. Currently, the patient appears appropriate for discharge home and ongoing outpatient management. I discussed with her the findings and plan and the patient understands and agrees. I discussed with her warning signs and recommended returning to the emergency department immediately for worsening or any concerns. - Sepsis Event Vital Signs: Vital Signs - 24 hr 11/25/17 11/25/17 02:50 03:17 Temperature 36.9 C Heart Rate 89 77 Respiratory 20 20 Rate Blood Pressure 205/89 H 188/82 H O2 Saturation 100 Oxygen O2 Source Room air Departure - Departure Disposition: 01 Home, Self Care Clinical Impression: Vomiting Qualifiers: Vomiting type: unspecified Vomiting Intractability: non-intractable Nausea presence: with nausea Qualified Code(s): R11.2 - Nausea with vomiting, unspecified Abdominal pain Qualifiers: Abdominal location: unspecified location Qualified Code(s): R10.9 - Unspecified abdominal pain Diverticulosis Qualifiers: Diverticulosis site: unspecified location Diverticulosis bleeding: diverticulosis without bleeding Qualified Code(s): K57.90 - Diverticulosis of intestine, part unspecified, without perforation or abscess without bleeding Condition: Good Instructions: Abdominal Pain, ED Nausea Vomiting Ch Prescriptions: Ondansetron Odt [Zofran] 4 mg TL Q6H PRN #30 tablet PRN Reason: Nausea / Vomiting Comments: Please Follow-up with primary care for recheck in reevaluation of your symptoms. Please return to the emergency department immediately for worsening symptoms or any concerns
[2017-11-25 03:16] LABS: BASOPHILS # (AUTO) 0.1 10^3/uL (0.0-0.1); BASOPHILS % (AUTO) 0.4 %; EOSINOPHILS # (AUTO) 0.2 10^3/uL (0.0-0.7); EOSINOPHILS % (AUTO) 1.7 %; HGB - HEMOGLOBIN 11.7 g/dL (12.0-16.0); LYMPHOCYTES # (AUTO) 0.9 10^3/uL (1.5-3.5); LYMPHOCYTES % (AUTO) 7.4 %; MEAN CORPUSCULAR HEMOGLOBIN 28.1 pg (27.0-31.0); MEAN CORPUSCULAR HGB CONC 32.7 g/dL (32.0-36.0); MEAN PLATELET VOLUME 6.8 fL (7.9-10.8); MONOCYTES # (AUTO) 0.8 10^3/uL (0.0-1.0); MONOCYTES % (AUTO) 6.2 %; NEUTROPHILS # (AUTO) 10.5 10^3/uL (1.5-6.6); NEUTROPHILS % (AUTO) 84.3 %; PLT - PLATELET COUNT 265 10^3/uL (130-450); RED BLOOD COUNT 4.16 10^6/uL (4.20-5.40); RED CELL DISTRIBUTION WIDTH 15.9 % (12.0-15.0); WHITE BLOOD COUNT 12.5 x10^3/uL (4.8-10.8)
[2017-11-25 03:30] LABS: ALBUMIN 3.7 g/dL (3.2-5.5); ALBUMIN/GLOBULIN RATIO 1.2 (1.0-2.2); BILIRUBIN,TOTAL 0.6 mg/dL (0.2-1.0); CALCIUM 10.4 mg/dL (8.5-10.3); CREATININE 0.8 mg/dL (0.4-1.0); TOTAL PROTEIN 6.8 g/dL (6.7-8.2)
[2017-11-25] MEDS ORDERED: IOPAMIDOL-300 100 ML VIAL ONE (03:37)
[2017-11-25 03:53] LABS: BILIRUBIN,URINE NEGATIVE (NEGATIVE); GLUCOSE, URINE (UA) NEGATIVE (NEGATIVE); KETONES,URINE (UA) TRACE mg/dL (NEGATIVE); LEUKOCYTE ESTERASE, URINE NEGATIVE (NEGATIVE); NITRITE,URINE NEGATIVE (NEGATIVE); OCCULT BLOOD,URINE NEGATIVE (NEGATIVE); PROTEIN,URINE NEGATIVE (NEGATIVE); UROBILINOGEN,URINE 0.2 (NORMAL) E.U./dL (NORMAL)
[2017-11-25 03:54] LABS: CLARITY,URINE CLEAR (CLEAR)
[2017-11-25] MEDS ORDERED: IOPAMIDOL-300 100 ML VIAL IVP ONE (04:36)
--- NOTE | 2017-11-25 04:41 | XRAY Report ---
Reason: cough Procedure Date: 11/25/2017 Accession Number: [id number] / [id number] Procedure: XR - Chest 2 View X-Ray CPT Code: 53452 FULL RESULT: EXAM: CHEST RADIOGRAPHY EXAM DATE: 11/25/2017 03:54 AM. CLINICAL HISTORY: Cough. Shortness of breath. Weakness and vomiting. COMPARISON: 09/01/2016. TECHNIQUE: 2 views. FINDINGS: Lungs/Pleura: Emphysema. Pulmonary vascular congestion. No alveolar consolidation or pleural effusion seen. No pneumothorax. Mediastinum: Mild cardiomegaly. Aortic atherosclerosis. Other: Osteopenia. IMPRESSION: 1. Emphysema with mild cardiomegaly and pulmonary vascular congestion. RADIA
--- NOTE | 2017-11-25 04:47 | CT Report ---
Reason: vomiting, pain Procedure Date: 11/25/2017 Accession Number: [id number] / [id number] Procedure: CT - Abdomen/Pelvis W/ CPT Code: FULL RESULT: EXAM: CT ABDOMEN AND PELVIS EXAM DATE: 11/25/2017 04:12 AM. CLINICAL HISTORY: Vomiting, pain. COMPARISONS: 07/12/2017. TECHNIQUE: Routine helical CT imaging was performed through the abdomen and pelvis. IV contrast: 100 ML ISOVUE 300. Enteric contrast: No. Reconstructions: Coronal and sagittal. In accordance with CT protocol optimization, one or more of the following dose reduction techniques were utilized for this exam: automated exposure control, adjustment of mA and/or KV based on patient size, or use of iterative reconstructive technique. FINDINGS: Lung Bases: Emphysema. Liver: Fatty infiltration. Gallbladder/Bile Ducts: Unremarkable. Spleen: Normal. Pancreas: Normal. Adrenal Glands: Normal. Kidneys: Small right renal cyst. No masses or hydronephrosis. Peritoneal Cavity/Bowel: Colonic diverticulosis. No obvious diverticulitis. Moderate stool in the right hemicolon. No bowel obstruction seen. Umbilical hernia containing fat. Small infraumbilical ventral hernia containing fat. No free air or free fluid. No lymphadenopathy. Appendix appears normal. Pelvic Organs: Uterus is not seen. Visualized pelvic organs are unremarkable. Vasculature: Moderate atherosclerosis. No aortic aneurysm. Bones: Osteopenia. Degenerative changes in the spine with grade 1 degenerative spondylolisthesis at L5-S1. Mild scoliosis. Other: None. IMPRESSION: 1. Extensive colonic diverticulosis. No definite diverticulitis seen. 2. Moderate stool in the right hemicolon. 3. No bowel obstruction identified. 4. Fatty liver. 5. Appendix appears normal. RADIA
[2017-11-25 05:24] VITALS: BP 155/69
== END 2017-11-25 06:25 | disposition home or self-care (01) ==
LOC: EDUNIT# → ED 02:49
DX: R11.2 Nausea with vomiting, unspecified (principal); K57.90 Diverticulosis of intestine, part unspecified, without perforation or abscess without bleeding; R94.31 Abnormal electrocardiogram [ECG] [EKG]; Z79.82 Long term (current) use of aspirin
CPT/HCPCS: 36415; 71046; 74177; 80053; 81003; 83690; 84484; 85025; 93005; 96361; 96374; 99283; 99284; Q9967; 81001; 87086

== ENCOUNTER 2018-10-02 10:35 | Emergency (ER) | payer MEDICARE, OTHER ==
--- NOTE | 2018-10-02 10:49 | ED Physician Documentation ---
PD HPI DYSPNEA - Stated complaint Stated Complaint: SOA - Chief complaint Chief Complaint: Resp - History obtained from History obtained from: Patient - History of Present Illness Timing - onset: How many weeks ago (1-2 weeks worsening, and particularly the past 4 days, but increased dyspnea for a month. States went to PMD office and assessed last week but no change in treatments.) Timing - onset during: Rest (the past 4 days), Light activity (initially) Timing - duration: Weeks Timing - details: Gradual onset, Still present Inciting event(s): URI (has feeling of cough and some congestion.) Improved by: O2, Inhaler/neb, Rest Worsened by: Exertion, Coughing. No: Laying flat Associated symptoms: Cough, Wheezing. No: Fever, Hemoptysis, Chest pain / discomfort, Palpitations, Bilateral edema Similar symptoms before: Diagnosis (COPD; no history of CHF.) Recently seen: Clinic (last week with earlier symptoms) Review of Systems Constitutional: denies: Fever, Chills, Myalgias Nose: reports: Congestion. denies: Rhinorrhea / runny nose Throat: denies: Sore throat Cardiac: denies: Chest pain / pressure, Palpitations Respiratory: reports: Dyspnea, Cough, Wheezing GI: denies: Abdominal Pain, Nausea, Vomiting Musculoskeletal: denies: Extremity swelling Neurologic: reports: Generalized weakness. 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 MGR: Hysterectomy Derm: Skin grafts, Skin cancer surgery - Present Medications Home Medications: Ambulatory Orders Medication Instructions Recorded Confirmed Budesonide/Formoterol Fumarate 2 puffs INH BID 05/28/13 09/05/16 [Symbicort 160-4.5 Mcg Inhaler] Omeprazole [Prilosec] 20 mg PO QDAC 05/28/13 09/05/16 Fluticasone [Flonase] 1 inhaler PO DAILY 09/01/16 09/05/16 Albuterol Sulfate [Proair Hfa 2 puffs INH Q4H PRN 09/02/16 09/05/16 Inhaler] Acetaminophen [Tylenol] 650 mg PO Q4HR PRN #0 tablet 09/03/16 09/05/16 Aspirin Chewable [St Bill 81 mg PO DAILY 11/25/17 11/25/17 Aspirin] Losartan [Cozaar] 100 mg PO DAILY 11/25/17 11/25/17 Multivitamin/Iron/Folic Acid 1 each PO DAILY 11/25/17 11/25/17 [Centrum Women Tablet] Ondansetron Odt [Zofran] 4 mg TL Q6H PRN #30 tablet 11/25/17 Benzonatate [Tessalon Perle] 100 mg PO TID PRN #20 capsule 10/02/18 Doxycycline Hyclate 100 mg PO BID #14 capsule 10/02/18 Ipratropium/Albuterol [Duoneb] 3 ml INH Q6H #30 neb 10/02/18 dexAMETHasone [Decadron] 4 mg PO DAILY #7 tablet 10/02/18 - Allergies Allergies/Adverse Reactions: Allergies Allergy/AdvReac Type Severity Reaction Status Date / Time amoxicillin [From Augmentin] Allergy Nausea Verified 10/02/18 10:50 clavulanic acid Allergy Nausea Verified 10/02/18 10:50 [From Augmentin] ciprofloxacin [From Cipro] AdvReac Unknown Nausea Verified 10/02/18 10:50 ciprofloxacin HCl * AdvReac Unknown Nausea Verified 10/02/18 10:50 [From Cipro] codeine AdvReac Unknown Hallucinati Verified 10/02/18 10:50 ons nabumetone [From Relafen] AdvReac Unknown Nausea Verified 10/02/18 10:50 nitrofurantoin AdvReac Unknown Nausea Verified 10/02/18 10:50 [From Macrobid] nitrofurantoin AdvReac Unknown Nausea Verified 10/02/18 10:50 macrocrystalline * [From Macrobid] Sulfa (Sulfonamide AdvReac Unknown Rash Verified 10/02/18 10:50 Antibiotics) oysters AdvReac Unknown Nausea Uncoded 10/02/18 10:50 - Social History Does the pt smoke?: No Smoking Status: Never smoker Does the pt drink ETOH?: No Does the pt have substance abuse?: No - Immunizations Immunizations are current?: Yes - POLST Patient has POLST: No PD ED PE NORMAL - Vitals Vital signs reviewed: Yes - General General: Alert and oriented X 3, No acute distress, Well developed/nourished - Neck Neck: Supple, no meningeal sign, No adenopathy, No JVD, No bruit - Cardiac Cardiac: RRR, No murmur - Respiratory Respiratory: No respiratory distress. No: Clear bilaterally (no coarse sounds, but does have diminished tidal volume and some exp wheezing diffusely. ) - Abdomen Abdomen: Soft, Non tender - Back Back: No CVA TTP - Derm Derm: Normal color - Extremities Extremities: No tenderness to palpate, Normal ROM s pain, No edema, No calf tenderness / cord - Neuro Neuro: Alert and oriented X 3, No motor deficit, Normal speech Results - Vitals Vitals: Vital Signs - 24 hr 10/02/18 10/02/18 10/02/18 10:45 11:30 12:49 Temperature 37.9 C H Heart Rate 95 86 95 Respiratory 26 H 20 16 Rate Blood Pressure 179/74 H O2 Saturation 100 10/02/18 13:24 Temperature Heart Rate 79 Respiratory 22 Rate Blood Pressure 154/79 H O2 Saturation 94 Oxygen O2 Source Nasal cannula Oxygen Flow Rate 4 - EKG (time done) 10:53 Rate: Rate (enter#) (94) Rhythm: NSR [place]: Normal Intervals: Normal CA QRS: Normal Ischemia: Normal ST segments. No: ST elevation c/w ischemia, ST depression - Labs Labs: Laboratory Tests 10/02/18 10/02/18 10/02/18 11:18 11:18 11:18 WBC 11.4 H RBC 3.99 L Hgb 11.2 L Hct 35.8 L MCV 89.7 MCH 28.1 MCHC 31.3 L RDW 15.4 H Plt Count 252 MPV 9.5 Neut # (Auto) 9.8 H Lymph # (Auto) 0.7 L [place] # (Auto) 0.8 Eos # (Auto) 0.0 Baso # (Auto) 0.0 Absolute Nucleated RBC 0.00 Nucleated RBC % 0.0 Sodium 138 Potassium 4.1 Chloride 97 L Carbon Dioxide 30 Anion Gap 11.0 BUN 15 Creatinine 0.7 Estimated GFR (MDRD) 80 L Glucose 119 H Calcium 11.0 H Magnesium 1.9 Total Bilirubin 1.0 AST 23 ALT 21 Alkaline Phosphatase 73 Troponin I < 0.04 B-Natriuretic Peptide Total Protein 7.6 Albumin 3.8 Globulin 3.8 Albumin/Globulin Ratio 1.0 Lipase 29 10/02/18 11:18 WBC RBC Hgb Hct MCV MCH MCHC RDW Plt Count MPV Neut # (Auto) Lymph # (Auto) [place] # (Auto) Eos # (Auto) Baso # (Auto) Absolute Nucleated RBC Nucleated RBC % Sodium Potassium Chloride Carbon Dioxide Anion Gap BUN Creatinine Estimated GFR (MDRD) Glucose Calcium Magnesium Total Bilirubin AST ALT Alkaline Phosphatase Troponin I B-Natriuretic Peptide 166 H Total Protein Albumin Globulin Albumin/Globulin Ratio Lipase - Rads (name of study) chest xray Radiology: Prelim report reviewed (some changes c/w vascular congesiton; no infiltrates), EMP read contemporaneously, See rad report PD MEDICAL DECISION MAKING - ED course Complexity details: considered differential (feeling improved after 2 nebs. She is on home oxygen usually and is saturating well on that. No pneumonia. I feel she is stable for outpatient treatment. ), d/w patient Departure - Departure Disposition: Home, Self Care Clinical Impression: COPD exacerbation Dyspnea Qualifiers: Dyspnea type: dyspnea on exertion Qualified Code(s): R06.09 - Other forms of dyspnea Upper respiratory infection Qualifiers: URI type: unspecified URI Qualified Code(s): J06.9 - Acute upper respiratory infection, unspecified Condition: Stable Record reviewed to determine appropriate education?: Yes Instructions: ED COPD Flare Follow-Up: Edna Rich MD [Primary Care Provider] - Prescriptions: Benzonatate [Tessalon Perle] 100 mg PO TID PRN #20 capsule PRN Reason: Cough dexAMETHasone [Decadron] 4 mg PO DAILY #7 tablet Doxycycline Hyclate 100 mg PO BID #14 capsule Ipratropium/Albuterol [Duoneb] 3 ml INH Q6H #30 neb Comments: Your chest x-rays does not show any signs of pneumonia. Still would be concerned he may have a bronchial infection given your symptoms and the flareup of the COPD. Doxycycline antibiotic twice daily for a week. Decadron steroid daily for a week as well. Continue your nebulizer treatments at home and do it 3 or 4 times a day. Add albuterol treatments as well if needed for shortness of breath. Continue your home oxygen. Follow-up with your primary care's office in the next several days to a week. Return if worsening. Discharge Date/Time: 10/02/18 13:53
[2018-10-02] MEDS ORDERED: IPRATROPIUM/ALBUTEROL 3 ML NEB INH STA (11:16)
[2018-10-02] MEDS ORDERED: DEXAMETHASONE 10 MG/ML VIAL IVP STA (11:17)
[2018-10-02] MEDS ORDERED: SODIUM CHLORIDE 0.9% 1,000 ML IV ONE (11:18)
[2018-10-02 11:35] LABS: BASOPHILS % (AUTO) 0.4 %; EOSINOPHILS % (AUTO) 0.1 %; HGB - HEMOGLOBIN 11.2 g/dL (12.0-16.0); LYMPHOCYTES # (AUTO) 0.7 10^3/uL (1.5-3.5); LYMPHOCYTES % (AUTO) 5.8 %; MEAN CORPUSCULAR HEMOGLOBIN 28.1 pg (27.0-31.0); MEAN CORPUSCULAR HGB CONC 31.3 g/dL (32.0-36.0); MEAN CORPUSCULAR VOLUME 89.7 fL (81.0-99.0); MEAN PLATELET VOLUME 9.5 fL (7.9-10.8); MONOCYTES # (AUTO) 0.8 10^3/uL (0.0-1.0); MONOCYTES % (AUTO) 6.9 %; NEUTROPHILS # (AUTO) 9.8 10^3/uL (1.5-6.6); NEUTROPHILS % (AUTO) 86.3 %; PLT - PLATELET COUNT 252 10^3/uL (130-450); RED BLOOD COUNT 3.99 10^6/uL (4.20-5.40); RED CELL DISTRIBUTION WIDTH 15.4 % (12.0-15.0); WHITE BLOOD COUNT 11.4 x10^3/uL (4.8-10.8)
[2018-10-02 11:44] LABS: ALBUMIN 3.8 g/dL (3.2-5.5); CREATININE 0.7 mg/dL (0.4-1.0); MAGNESIUM 1.9 mg/dL (1.7-2.8); TOTAL PROTEIN 7.6 g/dL (6.7-8.2)
--- NOTE | 2018-10-02 12:17 | XRAY Report ---
Reason: SOB/chest discomfort Procedure Date: 10/02/2018 Accession Number: [id number] / [id number] Procedure: XR - Chest 1 View X-Ray CPT Code: 17723 FULL RESULT: EXAM: CHEST RADIOGRAPHY EXAM DATE: 10/02/2018 11:33 AM. CLINICAL HISTORY: SOB/chest discomfort. COMPARISON: CHEST 2 VIEW 11/25/2017 3:54 AM. TECHNIQUE: Upright AP view. FINDINGS: Lungs/Pleura: As before, there appears to be mild bilateral pulmonary vascular congestion. There is no peripheral interstitial abnormality or focal consolidation. There is no pneumothorax or gross pleural fluid. Mediastinum: Within exam limitations, the cardiomediastinal contour is normal. Mild aortic arch calcification. Other: None. IMPRESSION: 1. Mild bilateral pulmonary vascular congestion as before which may reflect CHF. 2. No new airspace opacities. 3. Heart size is normal. RADIA
[2018-10-02] MEDS ORDERED: cefTRIAXone 1 GM VIAL IVP STA (12:23)
[2018-10-02] MEDS ORDERED: ALBUTEROL NEB 2.5 MG/3 ML INH STA (12:23)
[2018-10-02] MEDS ORDERED: DOXYCYCLINE 100 MG TABLET PO STA (12:23)
[2018-10-02 13:26] VITALS: BP 154/79
== END 2018-10-02 13:53 | disposition home or self-care (01) ==
LOC: ED 10:35
DX: J44.1 Chronic obstructive pulmonary disease with (acute) exacerbation (principal); J06.9 Acute upper respiratory infection, unspecified
CPT/HCPCS: 36415; 71045; 80053; 83690; 83735; 83880; 84484; 85025; 93005; 94640; 96361; 96374; 96375; 99284; A9270

== ENCOUNTER 2018-10-16 20:36 | Outpatient (CLI) | payer MEDICARE, OTHER | END 2018-10-16 20:37 | disposition critical access hospital (66) | LOC: EMS 20:36 | PROVIDERS: ATTEND Surgery | DX: R06.00 Dyspnea, unspecified (principal) | CPT/HCPCS: A0425; A0427 ==

== ENCOUNTER 2018-10-16 21:10 | Inpatient (IN) | payer MEDICARE, OTHER ==
[2018-10-16] MEDS ORDERED: methylPREDNISolone SUCCINATE 125 MG/2 ML VIAL IVP STA (21:17)
[2018-10-16] MEDS ORDERED: cefTRIAXone 1 GM in SODIUM CHLORIDE 0.9% MINIBAG 100 ML IV STA (21:18)
--- NOTE | 2018-10-16 21:21 | ED Physician Documentation ---
PD HPI DYSPNEA - Stated complaint Stated Complaint: SOA, FEVER,CHILLS - Chief complaint Chief Complaint: Resp - History obtained from History obtained from: Patient - History of Present Illness Timing - onset: Other (This is an 83-year-old woman who presents by ambulance for shortness of breath. She has a history of COPD for which she wears oxygen, 3 L by nasal cannula chronically. She also uses albuterol via neb 4 times a day, takes Spiriva. Over the last few days she has had increased shortness of breath with fevers and sweats. She has a chronic cough which she says really is not much worse than normal and it is nonproductive. Paramedics were summoned, they noted her sat to be around 60% on her usual 3 L, she did not tolerate efforts at CPAP or BiPAP, currently she is doing somewhat better after a DuoNeb in route and is about 97% on 6 L. 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 Derm: Skin grafts, Skin cancer surgery - Present Medications Home Medications: Ambulatory Orders Medication Instructions Recorded Confirmed Budesonide/Formoterol Fumarate 2 puffs INH BID 05/28/13 09/05/16 [Symbicort 160-4.5 Mcg Inhaler] Omeprazole [Prilosec] 20 mg PO QDAC 05/28/13 09/05/16 Albuterol Sulfate [Proair Hfa 2 puffs INH Q4H PRN 09/02/16 09/05/16 Inhaler] Aspirin Chewable [St Bill 81 mg PO DAILY 11/25/17 11/25/17 Aspirin] Losartan [Cozaar] 100 mg PO DAILY 11/25/17 11/25/17 Multivitamin/Iron/Folic Acid 1 each PO DAILY 11/25/17 11/25/17 [Centrum Women Tablet] Ipratropium/Albuterol [Duoneb] 3 ml INH Q6H #30 neb 10/02/18 - Allergies Allergies/Adverse Reactions: Allergies Allergy/AdvReac Type Severity Reaction Status Date / Time amoxicillin [From Augmentin] Allergy Nausea Verified 10/16/18 21:18 clavulanic acid Allergy Nausea Verified 10/16/18 21:18 [From Augmentin] ciprofloxacin [From Cipro] AdvReac Unknown Nausea Verified 10/16/18 21:18 ciprofloxacin HCl * AdvReac Unknown Nausea Verified 10/16/18 21:18 [From Cipro] codeine AdvReac Unknown Hallucinati Verified 10/16/18 21:18 ons nabumetone [From Relafen] AdvReac Unknown Nausea Verified 10/16/18 21:18 nitrofurantoin AdvReac Unknown Nausea Verified 10/16/18 21:18 [From Macrobid] nitrofurantoin AdvReac Unknown Nausea Verified 10/16/18 21:18 macrocrystalline * [From Macrobid] Sulfa (Sulfonamide AdvReac Unknown Rash Verified 10/16/18 21:18 Antibiotics) oysters AdvReac Unknown Nausea Uncoded 10/16/18 21:18 - Social History Does the pt smoke?: No Smoking Status: Never smoker Does the pt drink ETOH?: No Does the pt have substance abuse?: No - Family History Family history: reports: Non contributory - Immunizations Immunizations are current?: Yes - POLST Patient has POLST: No PD ED PE NORMAL - Vitals Vital signs reviewed: Yes - General General: Alert and oriented X 3, Other (Tachycardic, borderline febrile, tachypneic, decent saturations on 6 L) - HEENT HEENT: PERRL, EOMI, Pharynx benign - Neck Neck: Supple, no meningeal sign, No bony TTP - Cardiac Cardiac: Other (Tachycardic and regular without murmur) - Respiratory Respiratory: Other (Tachypneic, slightly decreased throughout) - Abdomen Abdomen: Soft, Non tender - Back Back: No CVA TTP, No spinal TTP - Derm Derm: Normal color, Warm and dry - Extremities Extremities: No edema, No calf tenderness / cord - Neuro Neuro: Alert and oriented X 3, Normal speech Results - Vitals Vitals: Vital Signs - 24 hr 10/16/18 21:11 Temperature 37.8 C H Heart Rate 119 H Respiratory 28 H Rate Blood Pressure 159/67 H O2 Saturation 97 Oxygen O2 Source Nasal cannula Oxygen Flow Rate 6 - EKG (time done) 5 Rate: Rate (enter#) (118) Rhythm: Sinus tachycardia [place]: Normal Intervals: Normal NV QRS: LVH Ischemia: Normal ST segments Computer interpretation: Agree with computer - Labs Labs: Laboratory Tests 10/16/18 10/16/18 10/16/18 21:25 21:30 21:30 WBC 18.6 H RBC 3.50 L Hgb 9.7 L Hct 30.9 L MCV 88.3 MCH 27.7 MCHC 31.4 L RDW 15.9 H Plt Count 270 MPV 9.2 Neut # (Auto) Not Reportable Lymph # (Auto) Not Reportable [place] # (Auto) Not Reportable Eos # (Auto) Not Reportable Baso # (Auto) Not Reportable Absolute Nucleated RBC Not Reportable Total Counted 100 Band Neuts % (Manual) 2 Abnorm Lymph % (Manual) 0 Nucleated RBC % Not Reportable Neutrophils # (Manual) 16.9 H Lymphocytes # (Manual) 0.6 L Monocytes # (Manual) 1.1 H Eosinophils # (Manual) 0.0 Basophils # (Manual) 0.0 Differential Comment MANUAL DIFFERENTIAL Platelet Estimate NORMAL (130-450,000) Platelet Morphology NORMAL APPEARANCE RBC Morph Micro Appear NORMAL APPEARANCE VBG pH VBG pCO2 VBG pO2 VBG HCO3 VBG Total CO2 VBG O2 Saturation VBG Base Excess Sodium 133 L Potassium 3.8 Chloride 98 L Carbon Dioxide 24 Anion Gap 11.0 BUN 15 Creatinine 0.7 Estimated GFR (MDRD) 80 L Glucose 138 H Lactic Acid Calcium 10.5 H Total Bilirubin 1.2 H AST 19 ALT 20 Alkaline Phosphatase 74 Troponin I Troponin I High Sens B-Natriuretic Peptide Total Protein 6.5 L Albumin 3.1 L Globulin 3.4 Albumin/Globulin Ratio 0.9 L Lipase 23 Influenza A (Rapid) Negative Influenza B (Rapid) Negative 10/16/18 10/16/18 10/16/18 21:30 21:30 21:30 WBC RBC Hgb Hct MCV MCH MCHC RDW Plt Count MPV Neut # (Auto) Lymph # (Auto) [place] # (Auto) Eos # (Auto) Baso # (Auto) Absolute Nucleated RBC Total Counted Band Neuts % (Manual) Abnorm Lymph % (Manual) Nucleated RBC % Neutrophils # (Manual) Lymphocytes # (Manual) Monocytes # (Manual) Eosinophils # (Manual) Basophils # (Manual) Differential Comment Platelet Estimate Platelet Morphology RBC Morph Micro Appear VBG pH 7.447 H VBG pCO2 37.4 L VBG pO2 146.2 H VBG HCO3 25.2 VBG Total CO2 26.4 VBG O2 Saturation 98.9 H VBG Base Excess 1.3 Sodium Potassium Chloride Carbon Dioxide Anion Gap BUN Creatinine Estimated GFR (MDRD) Glucose Lactic Acid Calcium Total Bilirubin AST ALT Alkaline Phosphatase Troponin I < 0.04 Troponin I High Sens 27.8 H* B-Natriuretic Peptide 239 H Total Protein Albumin Globulin Albumin/Globulin Ratio Lipase Influenza A (Rapid) Influenza B (Rapid) 10/16/18 21:35 WBC RBC Hgb Hct MCV MCH MCHC RDW Plt Count MPV Neut # (Auto) Lymph # (Auto) [place] # (Auto) Eos # (Auto) Baso # (Auto) Absolute Nucleated RBC Total Counted Band Neuts % (Manual) Abnorm Lymph % (Manual) Nucleated RBC % Neutrophils # (Manual) Lymphocytes # (Manual) Monocytes # (Manual) Eosinophils # (Manual) Basophils # (Manual) Differential Comment Platelet Estimate Platelet Morphology RBC Morph Micro Appear VBG pH VBG pCO2 VBG pO2 VBG HCO3 VBG Total CO2 VBG O2 Saturation VBG Base Excess Sodium Potassium Chloride Carbon Dioxide Anion Gap BUN Creatinine Estimated GFR (MDRD) Glucose Lactic Acid 0.9 Calcium Total Bilirubin AST ALT Alkaline Phosphatase Troponin I Troponin I High Sens B-Natriuretic Peptide Total Protein Albumin Globulin Albumin/Globulin Ratio Lipase Influenza A (Rapid) Influenza B (Rapid) PD MEDICAL DECISION MAKING - ED course ED course: 83-year-old woman presents in the midst of apparent COPD exacerbation, she is febrile and tachycardic and hypoxemic at home without evidence of heart failure. Her EKG is nonischemic. She did not feel like she needed a breathing treatment here but she was given IV steroids and Rocephin after blood cultures. She has a white count of 18,000, a very mildly elevated high-sensitivity troponin, a chest x-ray that was without pneumonia or evidence of CHF. Low sat at home and persistent need for significant oxygen support she will be admitted for further evaluation and treatment and I spoke with Dr. Kent for same at 10:20 PM. Departure - Departure Disposition: 66 [facility] DC/Xfer Clinical Impression: COPD exacerbation, Acute hypoxemic respiratory failure Condition: Serious
[2018-10-16 21:43] LABS: VBG PCO2 37.4 mmHg (41-51); VBG PH 7.447 (7.31-7.41); VBG PO2 146.2 mmHg (25-47); VBG TOTAL CO2 26.4 mmol/L (24-29)
[2018-10-16 21:44] LABS: VBG BASE EXCESS 1.3 mmol/L (-2 - +2)
--- NOTE | 2018-10-16 21:50 | XRAY Report ---
Reason: dyspnea copd Procedure Date: 10/16/2018 Accession Number: [id number] / [id number] Procedure: XR - Chest 1 View X-Ray CPT Code: 24202 FULL RESULT: EXAM: CHEST RADIOGRAPHY EXAM DATE: 10/16/2018 09:40 PM. CLINICAL HISTORY: Dyspnea. COPD. COMPARISON: CHEST 1 VIEW 10/02/2018 11:19 AM. TECHNIQUE: 1 view. FINDINGS: Cardiac leads overlie the chest. Heart size is normal. Calcified plaques in the thoracic aorta. Again seen are changes from chronic pulmonary disease, including diffuse interstitial scarring/fibrosis and centrilobular emphysema. No consolidation, pleural effusion, or pneumothorax visualized. The bones are osteopenic. Rounded densities projecting over the left humeral diaphysis are likely artifactual. IMPRESSION: No acute cardiopulmonary findings. COPD. RADIA
[2018-10-16 21:52] LABS: BASOPHILS % (AUTO) 0.2 %; HGB - HEMOGLOBIN 9.7 g/dL (12.0-16.0); LYMPHOCYTES % (AUTO) 3.5 %; MEAN CORPUSCULAR HEMOGLOBIN 27.7 pg (27.0-31.0); MEAN CORPUSCULAR HGB CONC 31.4 g/dL (32.0-36.0); MEAN CORPUSCULAR VOLUME 88.3 fL (81.0-99.0); MEAN PLATELET VOLUME 9.2 fL (7.9-10.8); MONOCYTES % (AUTO) 8.1 %; NEUTROPHILS % (AUTO) 87.6 %; PLT - PLATELET COUNT 270 10^3/uL (130-450); RED CELL DISTRIBUTION WIDTH 15.9 % (12.0-15.0); WHITE BLOOD COUNT 18.6 x10^3/uL (4.8-10.8)
[2018-10-16 21:53] LABS: ALBUMIN 3.1 g/dL (3.2-5.5); ALBUMIN/GLOBULIN RATIO 0.9 (1.0-2.2); BILIRUBIN,TOTAL 1.2 mg/dL (0.2-1.0); CALCIUM 10.5 mg/dL (8.5-10.3); CREATININE 0.7 mg/dL (0.4-1.0); TOTAL PROTEIN 6.5 g/dL (6.7-8.2)
[2018-10-16 21:57] LABS: TROPONIN I < 0.04 ng/mL (<0.49)
[2018-10-16 22:10] LABS: ABNORMAL LYMPHS % (MANUAL) 0 %
[2018-10-16 22:13] LABS: BAND NEUTROPHILS % (MANUAL) 2 %; LYMPHOCYTES # (MANUAL) 0.6 10^3/uL (1.5-3.5); LYMPHOCYTES % (MANUAL) 3 %; MONOCYTES # (MANUAL) 1.1 10^3/uL (0.0-1.0)
[2018-10-16 22:16] LABS: DIFFERENTIAL COMMENT MANUAL DIFFERENTIAL; PLATELET ESTIMATE, MANUAL NORMAL (130-450,000) (NORMAL); PLATELET MORPHOLOGY NORMAL APPEARANCE (NORMAL); RBC MORPHOLOGY (MULTIPLE) NORMAL APPEARANCE (NORMAL)
[2018-10-16] MEDS ORDERED: ACETAMINOPHEN 325 MG TABLET PO PRN (22:21)
[2018-10-16] MEDS ORDERED: ONDANSETRON 4 MG/2 ML VIAL IVP PRN (22:21)
[2018-10-16] MEDS ORDERED: AZITHROMYCIN INJ 500 MG in SODIUM CHLORIDE 0.9% 250 ML IV STA (22:32)
[2018-10-16] MEDS: SODIUM CHLORIDE FLUSH 0.9% 10 ML SYRINGE IVP SCH (23:47)
--- NOTE | 2018-10-17 00:26 | HISTORY & PHYSICAL EXAMINATION ---
Chief Complaint - Chief Complaint Chief Complaint: dyspnea History of Present Illness - Admitted From Admitted From:: [facility] ED - History Obtained From Records Reviewed: yes History obtained from: patient - History of Present Illness HPI Comment/Other: Patient seen on 10/16/18 at 2330pm Patient is an 83 y/o female who presented to the ED via EMS with dyspnea. Her symptoms has been progressing over the past 2 days and got significantly worse today. She took her nebulizer then albuterol inhaler without any improvement. She started feeling light-headed so she pushed her life alert button. She was given breathing treatments when EMS arrived at her residence. She is on 3L Oxygen via nasal canula at home. While on 3L her O2Sat upon presentation was 60%. She was put on oxygen at 6L and given additional breathing treatment and IV steriods. As a result of her presentation, she is being admitted for further treatment. He last exacerbation was 2 weeks ago. She was seen in the ED but not admitted. She denied chest pain, abd pain, nausea, vomiting, fever or chills. She has had a non-productive cough. She denies any irritant at home that could have triggered her symptoms. The rest of her history is unremarkable. 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 Possibly heart disease. Patient is not very sure. father: in his 80's of a stroke. She has 2 healthy children Living arrangement: At home Living Situation: Alone Social History Notes: She generally lives alone, but he son is visiting from [place] at the moment and living with her. She gets around in her house by supporting herself on one piece of furniture to the next. Someone helps drive her to her appointments. She is able to prepare her own meals. She smoked for 30 years between her 20's and 50's. She denies alcohol or illicit drug use. - POLST Patient has POLST: No POLST Status: DNR Meds/Allgy - Home Medications Home Medications: Ambulatory Orders Medication Instructions Recorded Confirmed Budesonide/Formoterol Fumarate 2 puffs INH BID 05/28/13 09/05/16 [Symbicort 160-4.5 Mcg Inhaler] Omeprazole [Prilosec] 20 mg PO QDAC 05/28/13 09/05/16 Albuterol Sulfate [Proair Hfa 2 puffs INH Q4H PRN 09/02/16 09/05/16 Inhaler] Aspirin Chewable [St Bill 81 mg PO DAILY 11/25/17 11/25/17 Aspirin] Losartan [Cozaar] 100 mg PO DAILY 11/25/17 11/25/17 Multivitamin/Iron/Folic Acid 1 each PO DAILY 11/25/17 11/25/17 [Centrum Women Tablet] Ipratropium/Albuterol [Duoneb] 3 ml INH Q6H #30 neb 10/02/18 - Allergies Allergies/Adverse Reactions: Allergies Allergy/AdvReac Type Severity Reaction Status Date / Time amoxicillin [From Augmentin] Allergy Nausea Verified 10/16/18 21:18 clavulanic acid Allergy Nausea Verified 10/16/18 21:18 [From Augmentin] ciprofloxacin [From Cipro] AdvReac Unknown Nausea Verified 10/16/18 21:18 ciprofloxacin HCl * AdvReac Unknown Nausea Verified 10/16/18 21:18 [From Cipro] codeine AdvReac Unknown Hallucinati Verified 10/16/18 21:18 ons nabumetone [From Relafen] AdvReac Unknown Nausea Verified 10/16/18 21:18 nitrofurantoin AdvReac Unknown Nausea Verified 10/16/18 21:18 [From Macrobid] nitrofurantoin AdvReac Unknown Nausea Verified 10/16/18 21:18 macrocrystalline * [From Macrobid] Sulfa (Sulfonamide AdvReac Unknown Rash Verified 10/16/18 21:18 Antibiotics) oysters AdvReac Unknown Nausea Uncoded 10/16/18 21:18 Review of Systems - Constitutional Constitutional: denies: Fever, Chills, Weakness, Poor appetite - Eyes Eyes: denies: Blurred vision, Vision loss, Dipolpia - Ears, Nose & Throat Ears, Nose & Throat: denies: Nasal discharge, Sore throat, Hoarseness - Cardiovascular Cariovascular: reports: Palpitations, Lightheadedness, Exertional dyspnea. denies: Chest pain, Edema, Syncope - Respiratory Respiratory: reports: Cough, Wheezing, SOB at rest, SOB with exertion. denies: Sputum production, Hemoptysis - Gastrointestinal Gastrointestinal: reports: Reflux/heartburn. denies: Abdominal pain, Abdominal distention, Constipation, Black stools, Nausea, Vomiting - Genitourinary Genitourinary: denies: Dysuria, Frequency, Hematuria, Incontinence - Musculoskeletal Musculoskeletal: denies: Muscle pain, Back pain, Joint pain - Integumentary Integumentary: denies: Rash, Pruritis, Lesions, Dryness - Neurological Neurological: denies: General weakness, Focal weakness, Headache, Numbness - Psychiatric Psychiatric: denies: Depression, Anxiety - Hematologic/Lymphatic Hematologic/Lymphatic: denies: Anemia, Bruising, Petechiae Prior Level of Functionality: She is independent of activities of daily living Exam - Vital Signs Vital Signs: Vital Signs x48h Temp Pulse Pulse Resp BP BP Pulse Ox 10/16/18 23:03 37.3 C 109 H 20 166/80 H 96 10/16/18 22:44 37.9 C H 10/16/18 22:23 110 H 23 156/76 H 98 10/16/18 21:11 37.8 C H 119 H 28 H 159/67 H 97 - Physical Exam General Appearance: positive: Alert, Moderate distress Eyes Bilateral: positive: Normal inspection, PERRL, EOMI ENT: positive: ENT inspection nml Neck: positive: Nml inspection, No JVD, Trachea midline Respiratory: positive: Chest non-tender, Wheezes. negative: Rales, Rhonchi Cardiovascular: positive: No murmur, Tachycardia Abdomen: positive: Non-tender, No distention. negative: Guarding, Rebound Back: positive: Nml inspection Skin: positive: Color nml, No rash, Warm, Dry Extremities: positive: Non-tender, Nml appearance, No pedal edema Neurologic/Psychiatric: positive: Oriented x3, CN's nml (2-12), Motor nml, Sensation nml Conclusion/Plan - Problem List (1) COPD exacerbation Conclusion/Plan: Patient on Oxygen via nasal canula. Will titrate down as tolerated Duoneb q4hrs prn. Solumedrol q8hrs X 3 doses Continue budesonide/formeterol Patient given 1 dose of rocephin and azithromycin Will hold on any further doses for now If symptoms worsen, will transfer to ICU for bipap (2) Hypertension Conclusion/Plan: Resume losartan once verified (3) GERD (gastroesophageal reflux disease) Conclusion/Plan: Protonix ordered - Lab Results Fish Bones: 10/16/18 21:30 10/16/18 21:30 Core Measures - Anticipated LOS I expect patient to be DC'd or transferred within 96 hours.: Yes - DVT/VTE - Prophylaxis VTE/DVT Device ordered at admit?: Yes VTE/DVT Prophylaxis med ordered at admit?: Yes
[2018-10-17] MEDS: SODIUM CHLORIDE 0.9% 1,000 ML IV SCH ×3 (02:03→23:17)
[2018-10-17] MEDS: SODIUM CHLORIDE FLUSH 0.9% 10 ML SYRINGE IVP PRN ×2 (02:04→06:28)
[2018-10-17 04:06] LABS: TROPONIN I < 0.04 ng/mL (<0.49)
[2018-10-17 04:28] LABS: BASOPHILS % (AUTO) 0.1 %; HGB - HEMOGLOBIN 9.5 g/dL (12.0-16.0); LYMPHOCYTES # (AUTO) 0.3 10^3/uL (1.5-3.5); LYMPHOCYTES % (AUTO) 1.8 %; MEAN CORPUSCULAR HEMOGLOBIN 27.6 pg (27.0-31.0); MEAN CORPUSCULAR HGB CONC 30.8 g/dL (32.0-36.0); MEAN CORPUSCULAR VOLUME 89.5 fL (81.0-99.0); MEAN PLATELET VOLUME 9.4 fL (7.9-10.8); MONOCYTES # (AUTO) 0.2 10^3/uL (0.0-1.0); MONOCYTES % (AUTO) 1.5 %; PLT - PLATELET COUNT 270 10^3/uL (130-450); RED BLOOD COUNT 3.44 10^6/uL (4.20-5.40); RED CELL DISTRIBUTION WIDTH 15.9 % (12.0-15.0); WHITE BLOOD COUNT 15.6 x10^3/uL (4.8-10.8)
[2018-10-17 04:31] LABS: CALCIUM 10.4 mg/dL (8.5-10.3); CREATININE 0.7 mg/dL (0.4-1.0)
[2018-10-17] MEDS: PANTOPRAZOLE 40 MG TABLET PO SCH (06:26)
[2018-10-17] MEDS: methylPREDNISolone SUCCINATE 125 MG/2 ML VIAL IVP SCH ×2 (06:26→13:40)
[2018-10-17] MEDS: FORMOTEROL FUMARATE NEB 20 MCG/2 ML INH SCH ×2 (07:27→20:03)
[2018-10-17] MEDS: BUDESONIDE 0.5 MG/2 ML NEB INH SCH ×2 (07:27→20:03)
[2018-10-17] MEDS: IPRATROPIUM/ALBUTEROL 3 ML NEB INH PRN ×2 (07:27→13:55)
[2018-10-17] MEDS: ENOXAPARIN 40 MG/0.4 ML SYRINGE SUBQ SCH (08:53)
[2018-10-17] MEDS: POLYETHYLENE GLYCOL 3350 17 GM PACKET PO SCH (08:53)
[2018-10-17] MEDS: SODIUM CHLORIDE FLUSH 0.9% 10 ML SYRINGE IVP SCH ×2 (08:54→17:49)
[2018-10-17 10:27] LABS: TROPONIN I < 0.04 ng/mL (<0.49)
--- NOTE | 2018-10-17 12:02 | PROVIDER PROGRESS NOTE ---
Subjective - Prog Note Date Prog Note Date: 10/17/18 Prog Note Time: 12:01 - Subjective Pt reports feeling: Improved Subjective: Malika states that she has had an improvement in her work of breathing, but still feels quite breathless. She states she has not moved her bowels in several days. She has been informed of her slight elevation in troponins, likely due to demand ischemia. She denies current chest pain, worsening cough, headache, new rash, or new dizziness. Current Medications - Current Medications Current Medications: Active Medications: Acetaminophen (Tylenol) 650 mg PO Q6HR PRN Albuterol/Ipratropium (Duoneb) 3 ml INH Q4HR PRN Aspirin (St Bill Aspirin) 81 mg PO DAILY [facility] Azithromycin (Zithromax) 250 mg PO DAILY [facility] Budesonide (Pulmicort) 0.5 mg INH RTBID [facility] Docusate Sodium (Colace 250mg Capsule) 250 - 500 mg PO DAILY [facility] Enoxaparin Sodium (Lovenox) 40 mg SUBQ DAILY [facility] Formoterol Fumarate (Perforomist) 20 mcg INH RTBID [facility] Pantoprazole Sodium (Protonix) 40 mg PO QDAC [facility] Polyethylene Glycol (Miralax) 17 gm PO DAILY [facility] Solumedrol 125 mg IV TID [facility] Senna (Senokot) 8.6 - 17.2 mg PO DAILY [facility] HOME meds: Budesonide/Formoterol Fumarate [Symbicort 160-4.5 Mcg Inhaler] 2 puffs INH BID 05/28/13 Omeprazole [Prilosec] 20 mg PO QDAC 05/28/13 Albuterol Sulfate [Proair Hfa Inhaler] 2 puffs INH Q4H PRN 09/02/16 Aspirin Chewable [St Bill Aspirin] 81 mg PO DAILY 11/25/17 Losartan [Cozaar] 100 mg PO DAILY 11/25/17 Multivitamin/Iron/Folic Acid [Centrum Women Tablet] 1 each PO DAILY 11/25/17 Tiotropium [place] [Spiriva Respimat] 2 puffs INH DAILY 10/17/18 Objective - Vital Signs/Intake & Output Reviewed Vital Signs: Yes Vital Signs: Vital Signs x48h Temp Pulse Pulse Resp BP Pulse Ox 10/17/18 11:30 36.2 C L 83 20 132/75 H 98 10/17/18 08:00 36.1 C L 89 22 146/65 H 99 10/17/18 07:27 84 20 Intake & Output: Intake & Output 10/14/18 10/15/18 10/16/18 10/17/18 23:59 23:59 23:59 23:59 Intake Total 100 710 Output Total 600 Balance 100 110 - Objective General Appearance: positive: Alert, Moderate distress, Anxious Eyes Bilateral: positive: PERRL Eyes: OU Conjunctivae pale ENT: positive: Pharynx nml, Dry mucous membranes Neck: positive: Thyroid nml, No JVD, Trachea midline, Lymphadenopathy (R), Lymphadenopathy (L), Stiff neck Respiratory: positive: Chest non-tender, No respiratory distress, Wheezes, Rhonchi Cardiovascular: positive: Regular rate & rhythm, No gallop, Systolic murmur, Decreased pulse(s) Peripheral Pulses: 1+ Radial (R), 1+ Radial (L) Abdomen: positive: Non-tender, Nml bowel sounds, Hepatomegaly, Other (rounded, soft) Back: positive: Nml inspection Skin: positive: No rash, Warm, Dry, Cyanosis, Pallor Extremities: positive: Non-tender, Full ROM, Pedal edema, Joint swelling Neurologic/Psychiatric: positive: Oriented x3, CN's nml (2-12), Motor nml, Weakness, Depressed mood/affect Reflexes: Bicep (R): 3+, Bicep (L): 3+ - Lab Results Fish Bones: 10/18/18 04:25 10/18/18 04:25 Other Labs: Lab Results x24hrs 10/17/18 10/17/18 10/17/18 Range/Units 09:49 03:40 03:40 WBC (4.8-10.8) x10^3/uL RBC (4.20-5.40) 10^6/uL Hgb (12.0-16.0) g/dL Hct (37.0-47.0) % MCV (81.0-99.0) fL MCH (27.0-31.0) pg MCHC (32.0-36.0) g/dL RDW (12.0-15.0) % Plt Count (130-450) 10^3/uL MPV (7.9-10.8) fL Neut # (Auto) Lymph # (Auto) [place] # (Auto) Eos # (Auto) Baso # (Auto) Absolute Nucleated RBC Total Counted Band Neuts % (Manual) (0 - 10) % Abnorm Lymph % (Manual) % Nucleated RBC % Neutrophils # (Manual) (1.5-6.6) 10^3/uL Lymphocytes # (Manual) (1.5-3.5) 10^3/uL Monocytes # (Manual) (0.0-1.0) 10^3/uL Eosinophils # (Manual) (0-0.7) 10^3/uL Basophils # (Manual) (0-0.1) 10^3/uL Differential Comment Platelet Estimate (NORMAL) Platelet Morphology (NORMAL) RBC Morph Micro Appear (NORMAL) VBG pH (7.31-7.41) VBG pCO2 (41-51) mmHg VBG pO2 (25-47) mmHg VBG HCO3 (23-28) mmol/L VBG Total CO2 (24-29) mmol/L VBG O2 Saturation (60-80) % VBG Base Excess (-2 - +2) mmol/L Sodium 136 (135-145) mmol/L Potassium 4.1 (3.5-5.0) mmol/L Chloride 100 L (101-111) mmol/L Carbon Dioxide 25 (21-32) mmol/L Anion Gap 11.0 (6-13) BUN 15 (6-20) mg/dL Creatinine 0.7 (0.4-1.0) mg/dL Estimated GFR (MDRD) 80 L (>89) Glucose 200 H (70-100) mg/dL Lactic Acid (0.5-2.2) mmol/L Calcium 10.4 H (8.5-10.3) mg/dL Total Bilirubin (0.2-1.0) mg/dL AST (10-42) IU/L ALT (10-60) IU/L Alkaline Phosphatase (42-121) IU/L Troponin I < 0.04 < 0.04 (<0.49) ng/mL Troponin I High Sens 21.9 H* 24.3 H* (2.3-14.8) pg/mL B-Natriuretic Peptide (5-100) pg/mL Total Protein (6.7-8.2) g/dL Albumin (3.2-5.5) g/dL Globulin (2.1-4.2) g/dL Albumin/Globulin Ratio (1.0-2.2) Lipase (22-51) U/L Influenza A (Rapid) (Negative) Influenza B (Rapid) (Negative) 10/17/18 10/16/18 10/16/18 Range/Units 03:40 21:35 21:30 WBC 15.6 H (4.8-10.8) x10^3/uL RBC 3.44 L (4.20-5.40) 10^6/uL Hgb 9.5 L (12.0-16.0) g/dL Hct 30.8 L (37.0-47.0) % MCV 89.5 (81.0-99.0) fL MCH 27.6 (27.0-31.0) pg MCHC 30.8 L (32.0-36.0) g/dL RDW 15.9 H (12.0-15.0) % Plt Count 270 (130-450) 10^3/uL MPV 9.4 (7.9-10.8) fL Neut # (Auto) 15.0 H Lymph # (Auto) 0.3 L [place] # (Auto) 0.2 Eos # (Auto) 0.0 Baso # (Auto) 0.0 Absolute Nucleated RBC 0.00 Total Counted Band Neuts % (Manual) (0 - 10) % Abnorm Lymph % (Manual) % Nucleated RBC % 0.0 Neutrophils # (Manual) (1.5-6.6) 10^3/uL Lymphocytes # (Manual) (1.5-3.5) 10^3/uL Monocytes # (Manual) (0.0-1.0) 10^3/uL Eosinophils # (Manual) (0-0.7) 10^3/uL Basophils # (Manual) (0-0.1) 10^3/uL Differential Comment Platelet Estimate (NORMAL) Platelet Morphology (NORMAL) RBC Morph Micro Appear (NORMAL) VBG pH 7.447 H (7.31-7.41) VBG pCO2 37.4 L (41-51) mmHg VBG pO2 146.2 H (25-47) mmHg VBG HCO3 25.2 (23-28) mmol/L VBG Total CO2 26.4 (24-29) mmol/L VBG O2 Saturation 98.9 H (60-80) % VBG Base Excess 1.3 (-2 - +2) mmol/L Sodium (135-145) mmol/L Potassium (3.5-5.0) mmol/L Chloride (101-111) mmol/L Carbon Dioxide (21-32) mmol/L Anion Gap (6-13) BUN (6-20) mg/dL Creatinine (0.4-1.0) mg/dL Estimated GFR (MDRD) (>89) Glucose (70-100) mg/dL Lactic Acid 0.9 (0.5-2.2) mmol/L Calcium (8.5-10.3) mg/dL Total Bilirubin (0.2-1.0) mg/dL AST (10-42) IU/L ALT (10-60) IU/L Alkaline Phosphatase (42-121) IU/L Troponin I (<0.49) ng/mL Troponin I High Sens (2.3-14.8) pg/mL B-Natriuretic Peptide (5-100) pg/mL Total Protein (6.7-8.2) g/dL Albumin (3.2-5.5) g/dL Globulin (2.1-4.2) g/dL Albumin/Globulin Ratio (1.0-2.2) Lipase (22-51) U/L Influenza A (Rapid) (Negative) Influenza B (Rapid) (Negative) 10/16/18 10/16/18 10/16/18 Range/Units 21:30 21:30 21:30 WBC (4.8-10.8) x10^3/uL RBC (4.20-5.40) 10^6/uL Hgb (12.0-16.0) g/dL Hct (37.0-47.0) % MCV (81.0-99.0) fL MCH (27.0-31.0) pg MCHC (32.0-36.0) g/dL RDW (12.0-15.0) % Plt Count (130-450) 10^3/uL MPV (7.9-10.8) fL Neut # (Auto) Lymph # (Auto) [place] # (Auto) Eos # (Auto) Baso # (Auto) Absolute Nucleated RBC Total Counted Band Neuts % (Manual) (0 - 10) % Abnorm Lymph % (Manual) % Nucleated RBC % Neutrophils # (Manual) (1.5-6.6) 10^3/uL Lymphocytes # (Manual) (1.5-3.5) 10^3/uL Monocytes # (Manual) (0.0-1.0) 10^3/uL Eosinophils # (Manual) (0-0.7) 10^3/uL Basophils # (Manual) (0-0.1) 10^3/uL Differential Comment Platelet Estimate (NORMAL) Platelet Morphology (NORMAL) RBC Morph Micro Appear (NORMAL) VBG pH (7.31-7.41) VBG pCO2 (41-51) mmHg VBG pO2 (25-47) mmHg VBG HCO3 (23-28) mmol/L VBG Total CO2 (24-29) mmol/L VBG O2 Saturation (60-80) % VBG Base Excess (-2 - +2) mmol/L Sodium 133 L (135-145) mmol/L Potassium 3.8 (3.5-5.0) mmol/L Chloride 98 L (101-111) mmol/L Carbon Dioxide 24 (21-32) mmol/L Anion Gap 11.0 (6-13) BUN 15 (6-20) mg/dL Creatinine 0.7 (0.4-1.0) mg/dL Estimated GFR (MDRD) 80 L (>89) Glucose 138 H (70-100) mg/dL Lactic Acid (0.5-2.2) mmol/L Calcium 10.5 H (8.5-10.3) mg/dL Total Bilirubin 1.2 H (0.2-1.0) mg/dL AST 19 (10-42) IU/L ALT 20 (10-60) IU/L Alkaline Phosphatase 74 (42-121) IU/L Troponin I < 0.04 (<0.49) ng/mL Troponin I High Sens 27.8 H* (2.3-14.8) pg/mL B-Natriuretic Peptide 239 H (5-100) pg/mL Total Protein 6.5 L (6.7-8.2) g/dL Albumin 3.1 L (3.2-5.5) g/dL Globulin 3.4 (2.1-4.2) g/dL Albumin/Globulin Ratio 0.9 L (1.0-2.2) Lipase 23 (22-51) U/L Influenza A (Rapid) (Negative) Influenza B (Rapid) (Negative) 10/16/18 10/16/18 Range/Units 21:30 21:25 WBC 18.6 H (4.8-10.8) x10^3/uL RBC 3.50 L (4.20-5.40) 10^6/uL Hgb 9.7 L (12.0-16.0) g/dL Hct 30.9 L (37.0-47.0) % MCV 88.3 (81.0-99.0) fL MCH 27.7 (27.0-31.0) pg MCHC 31.4 L (32.0-36.0) g/dL RDW 15.9 H (12.0-15.0) % Plt Count 270 (130-450) 10^3/uL MPV 9.2 (7.9-10.8) fL Neut # (Auto) Not Reportable Lymph # (Auto) Not Reportable [place] # (Auto) Not Reportable Eos # (Auto) Not Reportable Baso # (Auto) Not Reportable Absolute Nucleated RBC Not Reportable Total Counted 100 Band Neuts % (Manual) 2 (0 - 10) % Abnorm Lymph % (Manual) 0 % Nucleated RBC % Not Reportable Neutrophils # (Manual) 16.9 H (1.5-6.6) 10^3/uL Lymphocytes # (Manual) 0.6 L (1.5-3.5) 10^3/uL Monocytes # (Manual) 1.1 H (0.0-1.0) 10^3/uL Eosinophils # (Manual) 0.0 (0-0.7) 10^3/uL Basophils # (Manual) 0.0 (0-0.1) 10^3/uL Differential Comment MANUAL DIFFERENTIAL Platelet Estimate NORMAL (130-450,000) (NORMAL) Platelet Morphology NORMAL APPEARANCE (NORMAL) RBC Morph Micro Appear NORMAL APPEARANCE (NORMAL) VBG pH (7.31-7.41) VBG pCO2 (41-51) mmHg VBG pO2 (25-47) mmHg VBG HCO3 (23-28) mmol/L VBG Total CO2 (24-29) mmol/L VBG O2 Saturation (60-80) % VBG Base Excess (-2 - +2) mmol/L Sodium (135-145) mmol/L Potassium (3.5-5.0) mmol/L Chloride (101-111) mmol/L Carbon Dioxide (21-32) mmol/L Anion Gap (6-13) BUN (6-20) mg/dL Creatinine (0.4-1.0) mg/dL Estimated GFR (MDRD) (>89) Glucose (70-100) mg/dL Lactic Acid (0.5-2.2) mmol/L Calcium (8.5-10.3) mg/dL Total Bilirubin (0.2-1.0) mg/dL AST (10-42) IU/L ALT (10-60) IU/L Alkaline Phosphatase (42-121) IU/L Troponin I (<0.49) ng/mL Troponin I High Sens (2.3-14.8) pg/mL B-Natriuretic Peptide (5-100) pg/mL Total Protein (6.7-8.2) g/dL Albumin (3.2-5.5) g/dL Globulin (2.1-4.2) g/dL Albumin/Globulin Ratio (1.0-2.2) Lipase (22-51) U/L Influenza A (Rapid) Negative (Negative) Influenza B (Rapid) Negative (Negative) ABX Reporting Has patient been on IV antibiotics over the past 48 hours?: Yes Assessment/Plan - Problem List (1) Acute hypoxemic respiratory failure Impression: - Baseline wears 3L per nasal cannula at home, now up to 5L - Several visit to PCP, and to our ED in the past 1 month - Long standing COPD caused by second hand smoke, and a personal history of smoking Plan: Continue to provide respiratory cares, nebulizers, and treat exacerbation (2) COPD exacerbation Impression: - Patient was just seen in the ED on 10/02, treated with decadron, doxycycline and inhalers and released prior to this stay - Complained of her symptoms starting up to 2-3 weeks ago which had been worsening, and particularly for the past several days prior to admission - States that she went to her primary care provider's office, with no change in treatments - Now with a productive cough, elevated WBC count, chest tightness, profound activity intolerance and increased oxygen needs Plan: continue high dose solu-medrol IV, then transition to oral predisone in the AM, continue azithromycin, respiratory cares per RT, obtain sputum sample, monitor for improvement (3) GERD (gastroesophageal reflux disease) Impression: - Takes Prilosec at home, continued here Plan: Monitor for heart burn symptoms (4) Normocytic anemia Impression: - H/H down to 9.5/30.8 today - Normal MCV Plan: Continue to monitor, trend values, obtain iron studies (5) COPD (chronic obstructive pulmonary disease) Impression: - Home medications include; Spiriva, duo-nebs, proair, albuterol, and symbicort - Pulmicort and performomist, with duo-nebs as needed while here - More frequent hospital/ED visit indicating a possible need for Palliative/Hospice care services in the near future Plan: continue with Azithromycin, nebs per RT Qualifiers: COPD type: unspecified COPD Qualified Code(s): J44.9 - Chronic obstructive pulmonary disease, unspecified (6) Anxiety and depression Impression: - Very flat affect, some hopelessness today - Does not take any antidepressants at home - Patient states that since the loss of her , she has little hope and finds it difficult to manage on a daily basis Plan: Offer medical therapies, monitor for improvement (7) Hypertension Impression: - Takes Losartan at home, now on hold Plan: Continue to monitor, resume when appropriate Qualifiers: Hypertension type: essential hypertension Qualified Code(s): I10 - Essential (primary) hypertension
[2018-10-17] MEDS: AZITHROMYCIN 250 MG TABLET PO SCH (13:40)
[2018-10-18] MEDS: SODIUM CHLORIDE FLUSH 0.9% 10 ML SYRINGE IVP SCH ×3 (00:35→17:35)
[2018-10-18 04:54] LABS: BASOPHILS % (AUTO) 0.1 %; HGB - HEMOGLOBIN 9.1 g/dL (12.0-16.0); LYMPHOCYTES # (AUTO) 0.5 10^3/uL (1.5-3.5); LYMPHOCYTES % (AUTO) 3.2 %; MEAN CORPUSCULAR HEMOGLOBIN 27.3 pg (27.0-31.0); MEAN CORPUSCULAR HGB CONC 30.3 g/dL (32.0-36.0); MEAN CORPUSCULAR VOLUME 90.1 fL (81.0-99.0); MEAN PLATELET VOLUME 9.5 fL (7.9-10.8); MONOCYTES # (AUTO) 0.4 10^3/uL (0.0-1.0); MONOCYTES % (AUTO) 2.5 %; NEUTROPHILS # (AUTO) 14.4 10^3/uL (1.5-6.6); NEUTROPHILS % (AUTO) 93.8 %; PLT - PLATELET COUNT 291 10^3/uL (130-450); RED BLOOD COUNT 3.33 10^6/uL (4.20-5.40); RED CELL DISTRIBUTION WIDTH 15.9 % (12.0-15.0); WHITE BLOOD COUNT 15.3 x10^3/uL (4.8-10.8)
[2018-10-18 05:07] LABS: CALCIUM 10.5 mg/dL (8.5-10.3); CREATININE 0.8 mg/dL (0.4-1.0)
[2018-10-18] MEDS: PANTOPRAZOLE 40 MG TABLET PO SCH (06:34)
[2018-10-18] MEDS: FORMOTEROL FUMARATE NEB 20 MCG/2 ML INH SCH ×2 (07:42→18:43)
[2018-10-18] MEDS: BUDESONIDE 0.5 MG/2 ML NEB INH SCH ×2 (07:42→18:43)
[2018-10-18] MEDS: IPRATROPIUM/ALBUTEROL 3 ML NEB INH PRN ×3 (07:42→18:43)
[2018-10-18] MEDS: SODIUM CHLORIDE 0.9% 1,000 ML IV SCH (10:35)
[2018-10-18] MEDS: ENOXAPARIN 40 MG/0.4 ML SYRINGE SUBQ SCH (10:36)
[2018-10-18] MEDS: DOCUSATE SODIUM 250 MG CAPSULE PO SCH (10:37)
[2018-10-18] MEDS: ASPIRIN CHEW 81 MG TABLET PO SCH (10:37)
[2018-10-18] MEDS: POLYETHYLENE GLYCOL 3350 17 GM PACKET PO SCH (10:37)
[2018-10-18] MEDS: predniSONE 20 MG TABLET PO SCH (10:37)
[2018-10-18] MEDS: SENNA 8.6 MG TABLET PO SCH (10:37)
[2018-10-18] MEDS: AZITHROMYCIN 250 MG TABLET PO SCH (10:37)
--- NOTE | 2018-10-18 15:29 | PROVIDER PROGRESS NOTE ---
Subjective - Prog Note Date Prog Note Date: 10/18/18 Prog Note Time: 15:28 - Subjective Pt reports feeling: Improved Subjective: Malika complains of worsening anxiety and also about not getting her requested nebulizer treatments as requested overnight. She denies any new symptoms including; chest pain, chest pressure, a new rash, nausea, vomiting, or a worsening cough. She states that her appetite has only slightly improved. She is happy about the upcoming Hospice consult today. Current Medications - Current Medications Current Medications: Active Medications: Acetaminophen (Tylenol) 650 mg PO Q6HR PRN Albuterol/Ipratropium (Duoneb) 3 ml INH Q4HR PRN Aspirin (St Bill Aspirin) 81 mg PO DAILY [facility] Azithromycin (Zithromax) 250 mg PO DAILY [facility] Budesonide (Pulmicort) 0.5 mg INH RTBID [facility] Docusate Sodium (Colace 250mg Capsule) 250 - 500 mg PO DAILY [facility] Enoxaparin Sodium (Lovenox) 40 mg SUBQ DAILY [facility] Formoterol Fumarate (Perforomist) 20 mcg INH RTBID [facility] Pantoprazole Sodium (Protonix) 40 mg PO QDAC [facility] Polyethylene Glycol (Miralax) 17 gm PO DAILY [facility] Prednisone 60 mg PO daily [facility] Senna (Senokot) 8.6 - 17.2 mg PO DAILY [facility] HOME meds: Budesonide/Formoterol Fumarate [Symbicort 160-4.5 Mcg Inhaler] 2 puf fs INH BID 05/28/13 Omeprazole [Prilosec] 20 mg PO QDAC 05/28/13 Albuterol Sulfate [Proair Hfa Inhaler] 2 puffs INH Q4H PRN 09/02/16 Aspirin Chewable [St Bill Aspirin] 81 mg PO DAILY 11/25/17 Losartan [Cozaar] 100 mg PO DAILY 11/25/17 Multivitamin/Iron/Folic Acid [Centrum Women Tablet] 1 each PO DAILY 11/25/17 Tiotropium [place] [Spiriva Respimat] 2 puffs INH DAILY 10/17/18 Objective - Vital Signs/Intake & Output Reviewed Vital Signs: Yes Vital Signs: Vital Signs x48h Temp Pulse Pulse Resp BP Pulse Ox 10/18/18 11:54 82 20 10/18/18 08:00 36.4 C L 91 17 147/72 H 99 10/18/18 07:42 85 22 Intake & Output: Intake & Output 10/15/18 10/16/18 10/17/18 10/18/18 23:59 23:59 23:59 23:59 Intake Total 100 3851.667 1830 Output Total 600 265 Balance 100 3251.667 1565 - Objective General Appearance: positive: Alert, Moderate distress, Anxious Eyes Bilateral: positive: PERRL Eyes: OU Conjunctivae pale ENT: positive: Pharynx nml, Dry mucous membranes Neck: positive: Thyroid nml, No JVD, Trachea midline Respiratory: positive: Chest non-tender, Wheezes, Rhonchi Cardiovascular: positive: No gallop, Irregularly irregular, Tachycardia, Systolic murmur, Decreased pulse(s) Peripheral Pulses: 1+ Radial (R), 1+ Radial (L) Abdomen: positive: Non-tender, Nml bowel sounds, Hepatomegaly Back: positive: Nml inspection Skin: positive: No rash, Warm, Dry, Pallor, Other (skin grafting covering much of posterior torso, chronic coccyx ulcer) Extremities: positive: Non-tender, No pedal edema, Joint swelling Neurologic/Psychiatric: positive: Oriented x3, CN's nml (2-12), Motor nml, Sensation nml, Depressed mood/affect Reflexes: Bicep (R): 2+, Bicep (L): 2+ - Lab Results Fish Bones: 10/18/18 04:25 10/18/18 04:25 Other Labs: Lab Results x24hrs 10/18/18 10/18/18 Range/Units 04:25 04:25 WBC 15.3 H (4.8-10.8) x10^3/uL RBC 3.33 L (4.20-5.40) 10^6/uL Hgb 9.1 L (12.0-16.0) g/dL Hct 30.0 L (37.0-47.0) % MCV 90.1 (81.0-99.0) fL MCH 27.3 (27.0-31.0) pg MCHC 30.3 L (32.0-36.0) g/dL RDW 15.9 H (12.0-15.0) % Plt Count 291 (130-450) 10^3/uL MPV 9.5 (7.9-10.8) fL Neut # (Auto) 14.4 H (1.5-6.6) 10^3/uL Lymph # (Auto) 0.5 L (1.5-3.5) 10^3/uL [place] # (Auto) 0.4 (0.0-1.0) 10^3/uL Eos # (Auto) 0.0 (0.0-0.7) 10^3/uL Baso # (Auto) 0.0 (0.0-0.1) 10^3/uL Absolute Nucleated RBC 0.00 x10^3/uL Nucleated RBC % 0.0 /100WBC Sodium 139 (135-145) mmol/L Potassium 4.4 (3.5-5.0) mmol/L Chloride 106 (101-111) mmol/L Carbon Dioxide 26 (21-32) mmol/L Anion Gap 7.0 (6-13) BUN 24 H (6-20) mg/dL Creatinine 0.8 (0.4-1.0) mg/dL Estimated GFR (MDRD) 68 L (>89) Glucose 148 H (70-100) mg/dL Calcium 10.5 H (8.5-10.3) mg/dL ABX Reporting Has patient been on IV antibiotics over the past 48 hours?: No Assessment/Plan - Problem List (1) Acute hypoxemic respiratory failure Impression: - Baseline wears 3L per nasal cannula at home, now up to 5L - Several visit to PCP, and to our ED in the past 1 month - Long standing COPD caused by second hand smoke, and a personal history of smoking Plan: Continue to provide respiratory cares, nebulizers, and treat exacerbation (2) COPD exacerbation Impression: - Patient was just seen in the ED on 10/02, treated with decadron, doxycycline and inhalers and released prior to this stay - Complained of her symptoms starting up to 2-3 weeks ago which had been worsening, and particularly for the past several days prior to admission - States that she went to her primary care provider's office, with no change in treatments - Now with a productive cough, elevated WBC count, chest tightness, profound activity intolerance and increased oxygen needs - RT was very helpful and provided inhaler home use teaching - High dose IV steroids were discontinued late last night, now on a moderate dose of prednisone of 60 mg daily Plan: continue oral predisone, continue azithromycin, respiratory cares per RT, obtain sputum sample, monitor for improvement (3) GERD (gastroesophageal reflux disease) Impression: - Takes Prilosec at home, continued here Plan: Monitor for heart burn symptoms (4) Normocytic anemia Impression: - H/H down to 9.04/17 today, possibly from dilutional effects - Normal MCV Plan: Continue to monitor, trend values, obtain iron studies in the AM (5) COPD (chronic obstructive pulmonary disease) Impression: - Home medications include; Spiriva, duo-nebs, proair, albuterol, and symbicort - Pulmicort and performomist, with duo-nebs as needed while here - More frequent hospital/ED visit indicating a possible need for Palliative/Hospice care services in the near future Plan: continue with Azithromycin, nebs per RT Qualifiers: COPD type: unspecified COPD Qualified Code(s): J44.9 - Chronic obstructive pulmonary disease, unspecified (6) Anxiety and depression Impression: - Very flat affect, more hopelessness today - Now requesting Hospice care services, tearful at times - Her family seems to exacerbate her hopelessness - Does not take any antidepressants at home - Patient states that since the loss of her , she has little hope and finds it difficult to manage on a daily basis Plan: Offer medical therapies, monitor for improvement, proceed with Hospice care to be continued at home (7) Hypertension Impression: - Takes Losartan at home, now on hold - Blood pressure today has been 144/62, still holding home med Plan: Continue to monitor, resume when appropriate Qualifiers: Hypertension type: essential hypertension Qualified Code(s): I10 - Essential (primary) hypertension (8) Encounter for hospice care Impression: - Hospice consult made based on Pulmonary disease criteria; - Patient has all of the following: Disabling dyspnea at rest, little or no response to bronchodilators, decreased functional capacity with profound fatigue and chronic cough AND progression of her COPD with increased PCP, ED and hospital stays in the past 1-2 months, now with acute respiratory failure/exacerbation AND documentation of baseline oxygen saturation of less than 88% on room air at rest (baseline is 3L nasal cannula at home) Supporting documentation found today on echocardiogram: showing Cor Pulmonale, RVSP at rest of 103 mm Hg - Dr. Carlin was consulted today and evaluated patient- see chart for note Plan: Discharge home with Hospice
[2018-10-19] MEDS: SODIUM CHLORIDE FLUSH 0.9% 10 ML SYRINGE IVP SCH ×3 (00:38→16:47)
[2018-10-19] MEDS: BENZOCAINE/MENTHOL LOZENGE MM PRN ×2 (04:11→09:39)
[2018-10-19] MEDS: PANTOPRAZOLE 40 MG TABLET PO SCH (07:02)
[2018-10-19 07:56] LABS: BASOPHILS % (AUTO) 0.2 %; HGB - HEMOGLOBIN 9.3 g/dL (12.0-16.0); LYMPHOCYTES # (AUTO) 0.8 10^3/uL (1.5-3.5); LYMPHOCYTES % (AUTO) 6.1 %; MEAN CORPUSCULAR HEMOGLOBIN 27.8 pg (27.0-31.0); MEAN CORPUSCULAR HGB CONC 30.9 g/dL (32.0-36.0); MEAN CORPUSCULAR VOLUME 89.9 fL (81.0-99.0); MEAN PLATELET VOLUME 9.4 fL (7.9-10.8); MONOCYTES # (AUTO) 0.7 10^3/uL (0.0-1.0); MONOCYTES % (AUTO) 5.3 %; NEUTROPHILS # (AUTO) 11.3 10^3/uL (1.5-6.6); NEUTROPHILS % (AUTO) 87.8 %; PLT - PLATELET COUNT 331 10^3/uL (130-450); RED BLOOD COUNT 3.35 10^6/uL (4.20-5.40); RED CELL DISTRIBUTION WIDTH 15.9 % (12.0-15.0); WHITE BLOOD COUNT 12.9 x10^3/uL (4.8-10.8)
[2018-10-19 08:15] LABS: CREATININE 0.8 mg/dL (0.4-1.0)
[2018-10-19] MEDS: POLYETHYLENE GLYCOL 3350 17 GM PACKET PO SCH (08:20)
[2018-10-19] MEDS: predniSONE 20 MG TABLET PO SCH (08:20)
[2018-10-19] MEDS: AZITHROMYCIN 250 MG TABLET PO SCH (08:20)
[2018-10-19] MEDS: ASPIRIN CHEW 81 MG TABLET PO SCH (08:20)
[2018-10-19] MEDS: DOCUSATE SODIUM 250 MG CAPSULE PO SCH (08:20)
[2018-10-19] MEDS: SENNA 8.6 MG TABLET PO SCH (08:21)
[2018-10-19 08:25] LABS: THYROID STIMULATING HORMONE 2.82 uIU/mL (0.34-5.60)
[2018-10-19 08:30] LABS: FERRITIN 343.8 ng/mL (11.0-306.8)
[2018-10-19 08:38] LABS: FOLATE 14.18 ng/mL (5.90 - >24.8)
[2018-10-19] MEDS: BUDESONIDE 0.5 MG/2 ML NEB INH SCH ×2 (09:06→19:08)
[2018-10-19] MEDS: FORMOTEROL FUMARATE NEB 20 MCG/2 ML INH SCH ×2 (09:06→19:08)
[2018-10-19] MEDS: IPRATROPIUM/ALBUTEROL 3 ML NEB INH PRN ×2 (09:06→19:08)
[2018-10-19] MEDS: LOSARTAN 50 MG TABLET PO SCH (09:39)
[2018-10-19] MEDS: ENOXAPARIN 40 MG/0.4 ML SYRINGE SUBQ SCH (09:40)
--- NOTE | 2018-10-19 10:37 | Discharge Plan ---
Discharge Plan Problem Reviewed?: Yes Disposition: 50 Hospice/Home DC/Xfer Condition: Stable Prescriptions: Clindamycin HCl [Clindamycin 300MG CAP] 300 mg PO TID #15 capsule Guaifenesin [Mucinex] 600 mg PO BID #60 tab.er.12h LORazepam [Lorazepam] 0.5 mg PO Q6H PRN #30 tablet PRN Reason: Anxiety Losartan [Cozaar] 50 mg PO DAILY #30 tablet Prednisone 10 mg PO DAILY #4 tab.ds.pk Spironolactone [Aldactone] 12.5 mg PO BIDWM #15 tablet Diet: Regular Activity Restrictions: Activity as Tolerated Shower Restrictions: No Health Concerns: End stage COPD Cor Pulmonale Oxygen dependence Hospice care Plan of Treatment: Hospice to admit for home services Complete treatment of COPD using 5 more days of antibiotics, small steroid taper Treat Cor Pulmonale with Spironolactone, adjust Losartan down to allow for new medication Give Lorazepam to improve symptoms of anxiety Focus cares on quality of life verses quantity of life Care Goals: Prevent hospital stays Manage symptoms of COPD/Cor Pulmonale Hospice care at home Assessment: The patient is agreeable to return home if Hospice service is available today for a home admission. Plans to get final hospital bed delivery on Sunday. Follow-Up Care: Hospice No Smoking: If you smoke, Please STOP! Call for help. Follow-up with: Edna Rich MD [Primary Care Provider] -
--- NOTE | 2018-10-19 10:39 | DISCHARGE SUMMARY ---
"Discharge Summary Admit Date: 10/16/18 Discharge Date: 10/20/18 Discharging Provider: ARLENE Lora Primary Care Provider: Edna Rich/ Dr Ayden Carlin Code Status: Do Not Attempt Resuscitation Condition at Discharge: Stable Discharge Disposition: 50 Hospice/Home DC/Xfer - DIAGNOSES Admission Diagnoses: COPD exacerbation Hypertension GERD (gastroesophageal reflux disease) Discharge Diagnoses with Status of Each Condition: Acute hypoxemic respiratory failure- improved, chronic, home oxygen Cor pulmonale- New finding on echo during this hospital stay, started on spironolactone with BID dosing COPD exacerbation- continued on steroid taper, another 5 days of oral antibiotics, home oxygen GERD (gastroesophageal reflux disease)- chronic, stable Normocytic anemia- chronic, stable Anxiety and depression- chronic, lorazepam given for home use, Hospice care Hypertension- chronic, Losartan adjusted down since starting Spironolactone Encounter for hospice care- Hospice will admit shortly after patient arrives home today ~3PM - HPI History of Present Illness: HPI per Dr. Kent: (modified) Malika Vasquez is an 83-year old female with a past medical history of hypertension, end stage COPD, bladder spasms, urinary frequency, hematuria, hypercalcemia, dyspnea, atrophic vaginitis, pulmonary nodule, hypothyroidism, CAD, nephrolithiasis, depression, anxiety, chronic ulcers, and insomnia. She presented to the ED via EMS with dyspnea. Her symptoms has been progressing over the past 2 days and got significantly worse today. She took her nebulizer, then albuterol inhaler without any improvement. She started feeling light-headed so she pushed her life alert button. She was given breathing treatments when EMS arrived at her residence. She is on 3L Oxygen via nasal canula at home. While on 3L her O2Sat upon presentation was 60%. She was put on oxygen at 6L and given additional breathing treatment and IV steriods. He last exacerbation was 2 weeks ago. She was seen in the ED but not admitted. She denied chest pain, abdominal pain, nausea, vomiting, fever or chills. She has had a non-productive cough. She denies any irritant at home that could have triggered her symptoms. She was admitted to inpatient for further care. - CONSULTS | PROCEDURES Consultations: Hospice consult- Dr Carlin - HOSPITAL COURSE Hospital Course: (1) Acute hypoxemic respiratory failure- Baseline wears 3L per nasal cannula at home, now up to 4L - Several visits to PCP, and to our ED in the past 1 month - Long standing COPD caused by second hand smoke, and a personal history of smoking (2) Cor pulmonale- Echo shows this condition, long standing - RVSP at rest of 103 mm Hg - Continue spironolactone with split dosing at home (3) COPD exacerbation- Patient was just seen in the ED on 10/02, treated with decadron, doxycycline and inhalers and released prior to this stay - Complained of her symptoms starting up to 2-3 weeks ago which had been w orsening, and particularly for the past several days prior to admission - States that she went to her primary care provider's office, with no change in treatments - Now with a productive cough, elevated WBC count, chest tightness, profound activity intolerance and increased oxygen needs - RT was very helpful and provided inhaler home use teaching - High dose IV steroids were discontinued, now on a moderate dose of prednisone of 40 mg daily, which will go to 20 mg at home, then 10 mg over 3 days - A repeat chest x-ray was completed which is consistent with previous - Continued on Spironolactone and an expectorant - Continue oral predisone x3 days (taper dosing), clindamycin x5 days, and expe ctorant if needed at home (4) GERD (gastroesophageal reflux disease)- Takes Prilosec at home, continued here (5) Normocytic anemia- H/H down to 9.1/30, possibly from dilutional effects - Normal MCV - Transferrin and TIBC are both low, with a normal iron level (6) COPD (chronic obstructive pulmonary disease)- Home medications include; Spiriva, duo-nebs, proair, albuterol, and symbicort - Pulmicort and performomist, with duo-nebs as needed while here - More frequent hospital/ED visit indicating a possible need for Pal liative/Hospice care services in the near future (7) Anxiety and depression- Very flat affect, more hopelessness today - Now requesting Hospice care services, tearful at times - Her family seems to exacerbate her hopelessness - Does not take any antidepressants at home - Patient states that since the loss of her , she has little hope and finds it difficult to manage on a daily basis - Plan to offer comfort medications upon discharge as she still struggles with anxiety and more so in the transition of returning home (8) Hypertension- Takes Losartan at home, resumed losartan at 1/2 her usual dose (9) Encounter for hospice care- Hospice consult made based on Pulmonary disease criteria; - Patient has all of the following: Disabling dyspnea at rest, little or no response to bronchodilators, decreased functional capacity with profound fatigue and chronic cough AND progression of her COPD with increased PCP, ED and hospital stays in the past 1-2 months, now with acute respiratory failure/exacerbation AND documentation of baseline oxygen saturation of less than 88% on room air at rest (baseline is 3L nasal cannula at home) Supporting documentation found today on echocardiogram: showing Cor Pulmonale, RVSP at rest of 103 mm Hg - Dr. Carlin was consulted and evaluated patient- see chart for note Disposition: Discharged home with Hospice care to meet her later today via her son in a private car. - ALLERGIES Allergies/Adverse Reactions: Allergies Allergy/AdvReac Type Severity Reaction Status Date / Time amoxicillin [From Augmentin] Allergy Nausea Verified 10/16/18 21:18 clavulanic acid Allergy Nausea Verified 10/16/18 21:18 [From Augmentin] ciprofloxacin [From Cipro] AdvReac Unknown Nausea Verified 10/16/18 21:18 codeine AdvReac Unknown Hallucinati Verified 10/16/18 21:18 ons nabumetone [From Relafen] AdvReac Unknown Nausea Verified 10/16/18 21:18 nitrofurantoin AdvReac Unknown Nausea Verified 10/16/18 21:18 [From Macrobid] Sulfa (Sulfonamide AdvReac Unknown Rash Verified 10/16/18 21:18 Antibiotics) - MEDICATIONS Home Medications: Ambulatory Orders Medication Instructions Recorded Confirmed Budesonide/Formoterol Fumarate 2 puffs INH BID 05/28/13 10/17/18 [Symbicort 160-4.5 Mcg Inhaler] Omeprazole [Prilosec] 20 mg PO QDAC 05/28/13 10/17/18 Albuterol Sulfate [Proair Hfa 2 puffs INH Q4H PRN 09/02/16 10/17/18 Inhaler] Aspirin Chewable [St Bill 81 mg PO DAILY 11/25/17 10/17/18 Aspirin] Multivitamin/Iron/Folic Acid 1 each PO DAILY 11/25/17 11/25/17 [Centrum Women Tablet] Ipratropium/Albuterol [Duoneb] 3 ml INH Q6H #30 neb 10/02/18 10/17/18 Tiotropium [place] [Spiriva 2 puffs INH DAILY 10/17/18 10/17/18 Respimat] Clindamycin HCl [Clindamycin 300MG 300 mg PO TID #15 capsule 10/20/18 CAP] Guaifenesin [Mucinex] 600 mg PO BID #60 tab.er.12h 10/20/18 LORazepam [Lorazepam] 0.5 mg PO Q6H PRN #30 tablet 10/20/18 Losartan [Cozaar] 50 mg PO DAILY #30 tablet 10/20/18 Prednisone 10 mg PO DAILY #4 tab.ds.pk 10/20/18 Spironolactone [Aldactone] 12.5 mg PO BIDWM #15 tablet 10/20/18 - PHYSICAL EXAM AT DISCHARGE General Appearance: positive: Alert, Mild distress, Anxious Eyes Bilateral: positive: PERRL ENT: positive: Pharynx nml, No signs of dehydration Neck: positive: Thyroid nml, No JVD Respiratory: positive: Chest non-tender, No respiratory distress, Other (diminished bilaterally) Cardiovascular: positive: Regular rate & rhythm, No gallop, Systolic murmur Peripheral Pulses: positive: 1+ Abdomen: positive: Non-tender, Nml bowel sounds Back: positive: Nml inspection Skin: positive: No rash, Warm, Dry Extremities: positive: Non-tender, Pedal edema, Joint swelling Neurologic/Psychiatric: positive: Oriented x3, CN's nml (2-12), Motor nml, Weakness, Sensory loss, Depressed mood/affect Reflexes: Bicep (R): 3+, Bicep (L): 3+ - LABS Result Diagrams: 10/19/18 07:45 10/19/18 07:45 - DIAGNOSTIC IMAGING Diagnostic Imaging Results: Final report reviewed Diagnostic Imaging Results Comments: EXAM: CHEST RADIOGRAPHY EXAM DATE: 10/16/2018 09:40 PM IMPRESSION: No acute cardiopulmonary findings. EXAM: CHEST RADIOGRAPHY EXAM DATE: 10/19/2018 01:52 PM IMPRESSION: 1. No triston change in the pattern of bilateral interstitial infiltrates. 2. Possible new very small right pleural effusion. Preliminary echocardiogram from 10/16/2018: Mild concentric LV hypertrophy, EF of 65-70%, No obvious wall motion abnormalities, Paradoxical septal motion consistent with cor pulmonale. Mild RV enlargement, the RV septal wall is flattened in systole which is consistent with RV pressure overload. There is RV hypertrophy, findings compatible with cor pulmonale. Mild increase in the LA volume index, RA moderate enlargement, mild mitral regurg, moderate tricuspid regurg, severely abnormal right heart pressures, RVSP at rest is 103 mmHg, trivial pericardial effusion, no mass or thrombus. - TIME SPENT Time Spent in Discharge (Minutes): 55"
--- NOTE | 2018-10-19 12:38 | PROVIDER PROGRESS NOTE ---
Subjective - Prog Note Date Prog Note Date: 10/19/18 Prog Note Time: 12:38 - Subjective Pt reports feeling: Improved Subjective: Malika complains of poor sleep, continued increased efforts with work of breathing and a worsening cough. She denies chest pain, a rash, dizziness, diarrhea, nausea, vomiting, or a new productive cough. * Because of her new symptoms, her discharge home with Hospice will be delayed by at least one day. Current Medications - Current Medications Current Medications: Active Medications: Acetaminophen (Tylenol) 650 mg PO Q6HR PRN Albuterol/Ipratropium (Duoneb) 3 ml INH Q4HR PRN Aspirin (St Bill Aspirin) 81 mg PO DAILY LATA Azithromycin (Zithromax) 250 mg PO DAILY LATA Budesonide (Pulmicort) 0.5 mg INH RTBID LATA Docusate Sodium (Colace 250mg Capsule) 250 - 500 mg PO DAILY LATA Enoxaparin Sodium (Lovenox) 40 mg SUBQ DAILY LATA Formoterol Fumarate (Perforomist) 20 mcg INH RTBID LATA Guaifenesin (Mucinex) 600 mg PO BID LATA Losartan Potassium (Cozaar) 50 mg PO DAILY LATA Pantoprazole Sodium (Protonix) 40 mg PO QDAC LATA Polyethylene Glycol (Miralax) 17 gm PO DAILY LATA Prednisone (Deltasone) 40 mg PO DAILYWM LATA Senna (Senokot) 8.6 - 17.2 mg PO DAILY LATA Spironolactone (Aldactone) 12.5 mg PO BIDWM LATA Throat Lozenges (Cepacol) 1 lozenge MM Q2HR PRN HOME meds: Budesonide/Formoterol Fumarate [Symbicort 160-4.5 Mcg Inhaler] 2 puffs INH BID 05/28/13 Omeprazole [Prilosec] 20 mg PO QDAC 05/28/13 Albuterol Sulfate [Proair Hfa Inhaler] 2 puffs INH Q4H PRN 09/02/16 Aspirin Chewable [St Bill Aspirin] 81 mg PO DAILY 11/25/17 Losartan [Cozaar] 100 mg PO DAILY 11/25/17 Multivitamin/Iron/Folic Acid [Centrum Women Tablet] 1 each PO DAILY 11/25/17 Tiotropium [place] [Spiriva Respimat] 2 puffs INH DAILY 10/17/18 Objective - Vital Signs/Intake & Output Reviewed Vital Signs: Yes Vital Signs: Vital Signs x48h Temp Pulse Pulse Resp BP Pulse Ox 10/19/18 09:06 90 18 10/19/18 07:48 36.6 C 80 18 162/86 H 100 Intake & Output: Intake & Output 10/16/18 10/17/18 10/18/18 10/19/18 23:59 23:59 23:59 23:59 Intake Total 100 3851.667 2030 390 Output Total 600 465 300 Balance 100 3251.667 1565 90 - Objective General Appearance: positive: Alert, Moderate distress, Anxious Eyes Bilateral: positive: PERRL, No lid inflammation ENT: positive: Pharynx nml, No signs of dehydration Neck: positive: Thyroid nml, No JVD, Trachea midline Respiratory: positive: Chest non-tender, No respiratory distress, Wheezes, Other (bilateral scattered crackles) Cardiovascular: positive: Regular rate & rhythm, No gallop, Systolic murmur, Decreased pulse(s) Peripheral Pulses: 1+ Radial (R), 1+ Radial (L) Abdomen: positive: Non-tender, Nml bowel sounds, Hepatomegaly Back: positive: Nml inspection Skin: positive: No rash, Warm, Dry, Other (baseline torso scarring) Extremities: positive: Non-tender, Full ROM, No pedal edema, Joint swelling Neurologic/Psychiatric: positive: Oriented x3, CN's nml (2-12), Motor nml, Sensation nml, Depressed mood/affect Reflexes: Bicep (R): 3+, Bicep (L): 3+ - Lab Results Fish Bones: 10/19/18 07:45 10/19/18 07:45 Other Labs: Lab Results x24hrs 10/19/18 10/19/18 10/19/18 Range/Units 07:45 07:45 07:45 WBC (4.8-10.8) x10^3/uL RBC (4.20-5.40) 10^6/uL Hgb (12.0-16.0) g/dL Hct (37.0-47.0) % MCV (81.0-99.0) fL MCH (27.0-31.0) pg MCHC (32.0-36.0) g/dL RDW (12.0-15.0) % Plt Count (130-450) 10^3/uL MPV (7.9-10.8) fL Neut # (Auto) (1.5-6.6) 10^3/uL Lymph # (Auto) (1.5-3.5) 10^3/uL [place] # (Auto) (0.0-1.0) 10^3/uL Eos # (Auto) (0.0-0.7) 10^3/uL Baso # (Auto) (0.0-0.1) 10^3/uL Absolute Nucleated RBC x10^3/uL Nucleated RBC % /100WBC Sodium 139 (135-145) mmol/L Potassium 4.8 (3.5-5.0) mmol/L Chloride 104 (101-111) mmol/L Carbon Dioxide 27 (21-32) mmol/L Anion Gap 8.0 (6-13) BUN 34 H (6-20) mg/dL Creatinine 0.8 (0.4-1.0) mg/dL Estimated GFR (MDRD) 68 L (>89) Glucose 100 (70-100) mg/dL Calcium 11.0 H (8.5-10.3) mg/dL Iron 60 (28-170) ug/dL TIBC 169 L (250-450) ug/dL % Saturation 35 (20-50) % Transferrin 121 L (192-382) mg/dL Ferritin 343.8 H (11.0-306.8) ng/mL Vitamin B12 1483 H (180-914) pg/mL Folate 14.18 (5.90 - >24.8) ng/mL TSH 2.82 (0.34-5.60) uIU/mL 10/19/18 Range/Units 07:45 WBC 12.9 H (4.8-10.8) x10^3/uL RBC 3.35 L (4.20-5.40) 10^6/uL Hgb 9.3 L (12.0-16.0) g/dL Hct 30.1 L (37.0-47.0) % MCV 89.9 (81.0-99.0) fL MCH 27.8 (27.0-31.0) pg MCHC 30.9 L (32.0-36.0) g/dL RDW 15.9 H (12.0-15.0) % Plt Count 331 (130-450) 10^3/uL MPV 9.4 (7.9-10.8) fL Neut # (Auto) 11.3 H (1.5-6.6) 10^3/uL Lymph # (Auto) 0.8 L (1.5-3.5) 10^3/uL [place] # (Auto) 0.7 (0.0-1.0) 10^3/uL Eos # (Auto) 0.0 (0.0-0.7) 10^3/uL Baso # (Auto) 0.0 (0.0-0.1) 10^3/uL Absolute Nucleated RBC 0.00 x10^3/uL Nucleated RBC % 0.0 /100WBC Sodium (135-145) mmol/L Potassium (3.5-5.0) mmol/L Chloride (101-111) mmol/L Carbon Dioxide (21-32) mmol/L Anion Gap (6-13) BUN (6-20) mg/dL Creatinine (0.4-1.0) mg/dL Estimated GFR (MDRD) (>89) Glucose (70-100) mg/dL Calcium (8.5-10.3) mg/dL Iron (28-170) ug/dL TIBC (250-450) ug/dL % Saturation (20-50) % Transferrin (192-382) mg/dL Ferritin (11.0-306.8) ng/mL Vitamin B12 (180-914) pg/mL Folate (5.90 - >24.8) ng/mL TSH (0.34-5.60) uIU/mL ABX Reporting Has patient been on IV antibiotics over the past 48 hours?: No Assessment/Plan - Problem List (1) Acute hypoxemic respiratory failure Impression: - Baseline wears 3L per nasal cannula at home, now up to 4L - Several visits to PCP, and to our ED in the past 1 month - Long standing COPD caused by second hand smoke, and a personal history of smoking Plan: Continue to provide respiratory cares, nebulizers, and treat exacerbation (2) Cor pulmonale Impression: - Echo shows this condition, long standing - RVSP at rest of 103 mm Hg Plan: Start low dose spironolactone today (3) COPD exacerbation Impression: - Patient was just seen in the ED on 10/02, treated with decadron, doxycycline and inhalers and released prior to this stay - Complained of her symptoms starting up to 2-3 weeks ago which had been worsening, and particularly for the past several days prior to admission - States that she went to her primary care provider's office, with no change in treatments - Now with a productive cough, elevated WBC count, chest tightness, profound activity intolerance and increased oxygen needs - RT was very helpful and provided inhaler home use teaching - High dose IV steroids were discontinued late last night, now on a moderate dose of prednisone of 40 mg daily - Today a repeat chest x-ray was completed which is consistent with previous - Started Spironolactone and an expectorant today Plan: continue oral predisone, continue azithromycin, respiratory cares per RT, obtain sputum sample, monitor for improvement (4) GERD (gastroesophageal reflux disease) Impression: - Takes Prilosec at home, continued here Plan: Monitor for heart burn symptoms (5) Normocytic anemia Impression: - H/H down to 9.1/30, possibly from dilutional effects - Normal MCV - Transferrin and TIBC are both low, with a normal iron level Plan: Continue to monitor, trend values (6) COPD (chronic obstructive pulmonary disease) Impression: - Home medications include; Spiriva, duo-nebs, proair, albuterol, and symbicort - Pulmicort and performomist, with duo-nebs as needed while here - More frequent hospital/ED visit indicating a possible need for Palliative/Hospice care services in the near future Plan: continue with Azithromycin, nebs per RT Qualifiers: COPD type: unspecified COPD Qualified Code(s): J44.9 - Chronic obstructive pulmonary disease, unspecified (7) Anxiety and depression Impression: - Very flat affect, more hopelessness today - Now requesting Hospice care services, tearful at times - Her family seems to exacerbate her hopelessness - Does not take any antidepressants at home - Patient states that since the loss of her , she has little hope and finds it difficult to manage on a daily basis - Plan to offer comfort medications upon discharge as she still struggles with anxiety and more so in the transition of returning home Plan: Offer medical therapies, monitor for improvement, proceed with Hospice care to be continued at home (8) Hypertension Impression: - Takes Losartan at home - Blood pressure today has been 138/56 - Resumed losartan at 1/2 her usual dose Plan: Continue to monitor Qualifiers: Hypertension type: essential hypertension Qualified Code(s): I10 - Essential (primary) hypertension (9) Encounter for hospice care Impression: - Hospice consult made based on Pulmonary disease criteria; - Patient has all of the following: Disabling dyspnea at rest, little or no response to bronchodilators, decreased functional capacity with profound fatigue and chronic cough AND progression of her COPD with increased PCP, ED and hospital stays in the past 1-2 months, now with acute respiratory failure/exacerbation AND documentation of baseline oxygen saturation of less than 88% on room air at rest (baseline is 3L nasal cannula at home) Supporting documentation found today on echocardiogram: showing Cor Pulmonale, RVSP at rest of 103 mm Hg - Dr. Carlin was consulted and evaluated patient- see chart for note Plan: Discharge home with Hospice
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
[2018-10-19] MEDS: guaiFENesin 600 MG TABLET PO SCH ×2 (13:28→20:46)
[2018-10-19] MEDS: SPIRONOLACTONE 25 MG TABLET PO SCH ×2 (13:28→16:47)
--- NOTE | 2018-10-19 15:10 | XRAY Report ---
Reason: cough, shortness of breath Procedure Date: 10/19/2018 Accession Number: [id number] / [id number] Procedure: XR - Chest 1 View X-Ray CPT Code: 05189 FULL RESULT: EXAM: CHEST RADIOGRAPHY EXAM DATE: 10/19/2018 01:52 PM. CLINICAL HISTORY: Cough, shortness of breath. COMPARISON: CHEST 1 VIEW 10/16/2018 9:28 PM. TECHNIQUE: 1 view. FINDINGS: Lungs/Pleura: Stable pattern of bilateral interstitial infiltrates suggesting chronic interstitial lung disease and fibrosis. Minimal right costophrenic angle blunting could represent a new pleural effusion. No definite new or progressive pulmonary opacities. No triston pneumothorax. Mediastinum: Within exam limitations, the cardiomediastinal contour is normal. Aortic calcifications redemonstrated. Other: None. IMPRESSION: 1. No triston change in the pattern of bilateral interstitial infiltrates. 2. Possible new very small right pleural effusion. RADIA
[2018-10-20] MEDS: SODIUM CHLORIDE FLUSH 0.9% 10 ML SYRINGE IVP SCH ×2 (00:58→08:25)
[2018-10-20] MEDS: PANTOPRAZOLE 40 MG TABLET PO SCH (07:22)
[2018-10-20] MEDS: FORMOTEROL FUMARATE NEB 20 MCG/2 ML INH SCH (07:41)
[2018-10-20] MEDS: BUDESONIDE 0.5 MG/2 ML NEB INH SCH (07:41)
[2018-10-20 07:46] VITALS: BP 155/76
[2018-10-20] MEDS: IPRATROPIUM/ALBUTEROL 3 ML NEB INH PRN (07:50)
[2018-10-20] MEDS ORDERED: predniSONE 20 MG TABLET PO SCH (08:00)
[2018-10-20] MEDS: DOCUSATE SODIUM 250 MG CAPSULE PO SCH (08:19)
[2018-10-20] MEDS: ASPIRIN CHEW 81 MG TABLET PO SCH (08:20)
[2018-10-20] MEDS: ENOXAPARIN 40 MG/0.4 ML SYRINGE SUBQ SCH ×2 (08:20→09:00)
[2018-10-20] MEDS: guaiFENesin 600 MG TABLET PO SCH (08:23)
[2018-10-20] MEDS: LOSARTAN 50 MG TABLET PO SCH (08:23)
[2018-10-20] MEDS: SPIRONOLACTONE 25 MG TABLET PO SCH (08:23)
[2018-10-20] MEDS: AZITHROMYCIN 250 MG TABLET PO SCH (08:23)
[2018-10-20] MEDS: POLYETHYLENE GLYCOL 3350 17 GM PACKET PO SCH (08:24)
[2018-10-20] MEDS: SENNA 8.6 MG TABLET PO SCH (08:25)
[2018-10-20] MEDS ORDERED: LORazepam 0.5 MG TABLET PO PRN (12:25)
== END 2018-10-20 13:45 | disposition hospice, home (50) | DRG 189 ==
LOC: EDUNIT# → ED 21:10 → MS2 22:38
PROVIDERS: ADMIT Internal Medicine; ATTEND Nurse Practitioner
DX: J96.01 Acute respiratory failure with hypoxia (principal); J44.1 Chronic obstructive pulmonary disease with (acute) exacerbation; I48.92 Unspecified atrial flutter; I10 Essential (primary) hypertension; I27.81 Cor pulmonale (chronic); K21.9 Gastro-esophageal reflux disease without esophagitis; E03.9 Hypothyroidism, unspecified; D64.9 Anemia, unspecified; I25.10 Atherosclerotic heart disease of native coronary artery without angina pectoris; F32.9 Major depressive disorder, single episode, unspecified; F41.9 Anxiety disorder, unspecified; G47.00 Insomnia, unspecified; R35.0 Frequency of micturition; R35.1 Nocturia; N32.89 Other specified disorders of bladder; E83.52 Hypercalcemia; R91.1 Solitary pulmonary nodule; Z51.5 Encounter for palliative care; Z66 Do not resuscitate; Z99.81 Dependence on supplemental oxygen; Z79.51 Long term (current) use of inhaled steroids; Z79.82 Long term (current) use of aspirin; Z85.828 Personal history of other malignant neoplasm of skin; Z87.442 Personal history of urinary calculi; Z87.11 Personal history of peptic ulcer disease; Z87.891 Personal history of nicotine dependence
CPT/HCPCS: 36415; 71045; 80048; 80053; 82607; 82728; 82746; 82803; 83540; 83605; 83690; 83880; 84443; 84466; 84484; 85025; 87040; 87275; 87276; 93005; 93306; 94640; 94664; 96365; 96375; 97116; 97161; 97530; 99284; 99285; A9270; J1650; J7512; J7626